=== PATIENT | female | born 1960 | race Hispanic/Latino ===

== ENCOUNTER 2017-06-06 12:24 | Inpatient (IN) | payer MEDICAID, SELFPAY ==
[2017-06-06] MEDS ORDERED: Dextrose 50% Abboject 50 ML SYRINGE ONE (13:23)
[2017-06-06 13:30] LABS: #Lymphocytes 1.2 thou/uL (1.20-3.40); #Neutrophils 10.7 thou/uL (1.40-6.50); %Basophils 0.1 % (0.0-1.0); %Eosinophils 0.3 % (0.0-10.0); %Lymphocytes 8.9 % (21.0-51.0); %Monocytes 7.4 % (0.0-10.0); %Neutrophils 83.2 % (42.0-75.0); Hemoglobin 10.7 g/dL (12.0-16.0); Mean Corpuscular HGB CONC 32.8 g/dL (32.0-36.0); Mean Corpuscular Hemoglobin 28.9 pg (27.0-31.0); Platelet Count 151 thou/uL (130-400); RBC Distribution Width 12.5 % (11.5-14.5); Red Blood Cell (RBC) Count 3.69 mill/uL (4.20-5.40); White Blood Cell (WBC) Count 12.8 thou/uL (4.8-10.8)
--- NOTE | 2017-06-06 13:52 | RAD ---
UPRIGHT PORTABLE CHEST ONE VIEW: History: 57-year-old female with history of the flu and altered mental status. Comparison: 02-16-15 FINDINGS: Heart size is within normal limits. The lungs are clear. No pneumonia, edema, or pleural effusion. IMPRESSION: No acute intrathoracic disease. POS: [facility]
[2017-06-06 14:03] LABS: ALT (SGPT) 8 U/L (8-55); AST (SGOT) 22 U/L (5-34); Albumin 3.5 g/dL (3.5-5.0); Alkaline Phosphatase 94 U/L (40-150); Anion Gap 17 mmol/L (10-20); BUN (Urea Nitrogen) 60 mg/dL (9.8-20.1); Bilirubin, Total 0.2 mg/dL (0.2-1.2); Calc. Creatinine Clearance 0 mL/min (70-130); Calcium 7.9 mg/dL (7.8-10.44); Carbon Dioxide 17 mmol/L (22-29); Chloride 108 mmol/L (98-107); Estimated GFR-MDRD 8; Globulin 3.2 g/dL (2.4-3.5); Potassium 4.7 mmol/L (3.5-5.1); Protein, Total 6.7 g/dL (6.0-8.3); Sodium 137 mmol/L (136-145)
[2017-06-06 14:10] LABS: Glucose 40 mg/dL (70-105)
[2017-06-06 14:22] LABS: CKMB 2.3 ng/mL (0-6.6)
--- NOTE | 2017-06-06 16:36 | HP ---
PRIMARY CARE PHYSICIAN: Dr. Cheyenne Blackwell. REASON FOR ADMISSION: Altered mental status and acute on chronic kidney failure. HISTORY OF PRESENT ILLNESS: A 57-year-old female, who has underlying history of chronic kidney disease, stage 3. Patient came to emergency room for altered mental status. Patient's family member reports that she was having flu- like symptoms, but in our emergency room, flu screen is negative. Patient was having very poor appetite and she was taking Glucotrol-XL 10 mg twice daily. She was feeling intermittently dizzy, diaphoretic at home for the last couple of days. Today, patient was completely diaphoretic and she passed out. She was having headache and weakness. When she came to the emergency room, she was hypoglycemic and she was given D50 and after that condition completely improved. She did not have any focal motor or sensory symptoms. She did not have any chest pain, palpitation, or shortness of breath. Patient denies taking NSAID. She takes all her medication as prescribed from primary care physician. Today, in the emergency room, routine blood tests showed a little bit leukocytosis with left shift and hypoglycemia as well as acute on chronic kidney failure. Back in 2016, her creatinine was 1.49 and today 5.62. Patient was following Dr. Jiménez in the past. I saw this patient in the emergency room. The patient is not able to talk in Arabic, but her son is present at bedside, who provided most of the history and I explained him test results as well as plan of care. When I saw this patient, patient does not have any focal neurological deficits. She is back to normal and we are deciding to admit her on medical floor for acute on chronic kidney failure. Patient does have nausea , vomiting, anorexia, and sometimes pruritus and insomnia. She is making some urine, but amount of urine is also reduced. She denies any edema, orthopnea, PND, cough, or shortness of breath, but she gets easy fatigability. ALLERGIES: No known drug allergies. CURRENT HOME MEDICATIONS: Gabapentin 100 mg p.o. daily, Glucotrol-XL 10 mg twice daily, ranitidine 300 mg p.o. at bedtime, Protonix 40 mg p.o. daily, aspirin 81 mg p.o. daily, amlodipine 10 mg p.o. daily, Lipitor 10 mg p.o. at bedtime. EMERGENCY ROOM COURSE: Patient is given D50 one ampule in the emergency room. REVIEW OF SYSTEMS: The following complete review of systems was negative, unless otherwise mentioned in the HPI or below: Constitutional: Weight loss or gain, ability to conduct usual activities. Skin: Rash, itching. Eyes: Double vision, pain. ENT/Mouth: Nose bleeding, neck stiffness, pain, tenderness. Cardiovascular: Palpitations, dyspnea on exertion, orthopnea. Respiratory: Shortness of breath, wheezing, cough, hemoptysis, fever, or night sweats. Gastrointestinal: Poor appetite, abdominal pain, heartburn, nausea, vomiting, constipation, or diarrhea. Genitourinary: Urgency, frequency, dysuria, nocturia. Musculoskeletal: Pain, swelling. Neurologic/Psychiatric: Anxiety, depression. Allergy/Immunologic: Skin rash, bleeding tendency. Please see my HPI for pertinent positives and negatives. All other review of systems reviewed and negative except as mentioned in the HPI. PAST MEDICAL HISTORY: Diabetes, type 2; diabetic nephropathy; chronic kidney disease, stage 3; hypertension; history of cervical cancer, status post surgery ; diabetic neuropathy; dyslipidemia; gastroesophageal reflux disease. PAST SURGICAL HISTORY: Cervical cancer surgery. PAST PSYCHIATRIC HISTORY: Reviewed and negative. SOCIAL HISTORY: Patient lives at home. No history of tobacco, alcohol, or illicit drug abuse. FAMILY HISTORY: No strong family history of premature coronary artery disease, stroke, or cancer. Diabetes runs among several family members. PHYSICAL EXAMINATION: VITAL SIGNS: On arrival, blood pressure 174/86, pulse 97, respiratory rate 15, temperature 98.5, saturation 94% on room air, weight 79.3 kilograms. GENERAL: Patient is hypertensive, in no obvious acute distress, alert, oriented x3. HEENT: Head: The patient does have mild bruising over the right zygomatic arch , but no other trauma. Head, normocephalic, atraumatic. Eyes: Pupils round, reactive to light. Extraocular muscle intact. No nystagmus. ENT: Oropharynx within normal limits. Moist mucous membranes. No oral lesions. No pharyngeal erythema, no exudate. NECK: Supple, no JVD, no thyromegaly, no carotid bruit, no jugular venous distention. LUNGS: Clear to auscultation without any rhonchi or rales. CARDIAC: S1 and S2, regular. No murmur, no gallop, no rub. ABDOMEN: Soft, bowel sounds present, nontender, nondistended. No organomegaly , no mass, no suprapubic tenderness. BACK EXAMINATION: Unremarkable, no CVA tenderness. EXTREMITIES: Upper extremities, passive movement of all joints are normal. Lower extremities, no edema. Good peripheral pulsation. SKIN: No skin rash. HEMATOLOGICAL SYSTEM: No lymphadenopathy. PSYCHIATRIC: Normal affect. NEUROLOGIC: Nonfocal examination. Patient is alert and oriented x3. Cranial nerves II-XII intact. Motor 5/5 in all 4 limbs. Sensation bilaterally symmetrical. Plantar bilateral flexor. No cerebellar sign. SIGNIFICANT LABORATORY DATA: Chest x-ray, based on my review, no acute cardiopulmonary process. CBC: WBC 12.8, hemoglobin 10.7, platelets 151 with a left shift. BMP: Sodium 137, potassium 4.7, chloride 108, carbon dioxide 17, anion gap 17, BUN 60, creatinine 5.62, glucose 40, calcium 7.9. Lactic acid 0.7. LFT: AST 22, ALT 8, alkaline phosphatase 94, albumin 3.5, CK 316, CK-MB 2.3, troponin I 0.020. EKG: Normal sinus rhythm within normal limits. ASSESSMENT AND PLAN: 1. Acute metabolic encephalopathy, likely due to hypoglycemia. 2. Hypoglycemia associated with diabetes, type 2, secondary to oral sulfonylurea medication. 3. Acute on chronic kidney failure. Baseline chronic kidney disease, stage 3. 4. Metabolic acidosis. 5. Anemia of renal disease. 6. Mild rhabdomyolysis. 7. Hypertension, uncontrolled. 8. Dyslipidemia. 9. Gastroesophageal reflux disease. 10. Diabetic neuropathy. PLAN: 1. Full admission to medical floor, watch for hypoglycemia, start D5 with 1/2 normal saline with 3 ampules of sodium bicarbonate at 75 mL per hour. Control blood pressure with hydralazine and clonidine p.r.n. basis. We will start amlodipine 10 mg p.o. daily. We will add Coreg 12.5 mg twice daily. We will resume gabapentin 100 mg p.o. daily, Protonix 40 mg p.o. daily, and Lipitor 10 mg p.o. at bedtime. We will hold oral sulfonylurea and watch for any recurrent hypoglycemia overnight. Nephrology will be consulted and we will send urinalysis, urine sodium, creatinine, protein for further evaluation. 2. Deep venous thrombosis prophylaxis, heparin 5000 units subcu twice daily. 3. Gastrointestinal prophylaxis, Protonix 40 mg p.o. daily. CODE STATUS: The patient is FULL CODE. Patient's son is surrogate decision maker. Disposition plan based on clinical course. We are expecting patient's stay in hospital more than 2 midnights. Plan of care discussed with the patient and family member at bedside in the emergency room. RL
[2017-06-06] MEDS ORDERED: Ondansetron HCl/PF 4 MG/2 ML Vial IVP PRN (18:05)
[2017-06-06] MEDS ORDERED: Ondansetron ODT 4 MG TAB SL PRN (18:05)
[2017-06-06] MEDS ORDERED: Sodium Chloride 0.9% 1,000 ML IV SCH (18:15)
[2017-06-06 18:38] VITALS: BMI 33.0
[2017-06-06] MEDS ORDERED: Milk Of Magnesia 30 ML UDCUP PO PRN (19:33)
[2017-06-06] MEDS ORDERED: Dextrose 50% Abboject 50 ML SYRINGE SLOW IVP PRN (19:33)
[2017-06-06] MEDS ORDERED: HYDROcodone/Acetaminophen 5/325 mg Tablet PO PRN (19:33)
[2017-06-06] MEDS ORDERED: Mag-Al 1200 mg/1200 mg/30 ML UDCUP PO PRN (19:33)
[2017-06-06] MEDS ORDERED: Eucerin (Mineral Oil/Petrolatum,White) 30 gm Jar TOP PRN (19:33)
[2017-06-06] MEDS ORDERED: hydrALAZINE 20 MG/ML VIAL SLOW IVP PRN (19:33)
[2017-06-06] MEDS ORDERED: Artificial Tears 18 DROP/0.9 ML EA EYE PRN (19:33)
[2017-06-06] MEDS ORDERED: Chloraseptic Spray 180 ml Bottle PO PRN (19:33)
[2017-06-06] MEDS ORDERED: Dextrose 5% in Water 1,000 ML IV PRN (19:33)
[2017-06-06] MEDS ORDERED: Loratadine 10 MG TAB PO PRN (19:33)
[2017-06-06] MEDS ORDERED: Senokot 8.6 MG TAB PO PRN (19:33)
[2017-06-06] MEDS ORDERED: Nitroglycerin 0.4 MG TAB (25 Tab Bottle) SL PRN (19:33)
[2017-06-06] MEDS ORDERED: Loperamide HCl 2 MG CAP PO PRN (19:33)
[2017-06-06] MEDS ORDERED: cloNIDine 0.1 MG TAB PO PRN (19:33)
[2017-06-06] MEDS ORDERED: Sodium Chloride 0.65% Nasal 44 ML BOT EA NARE PRN (19:33)
[2017-06-06] MEDS ORDERED: Zolpidem Tartrate 5 MG TAB PO PRN (19:33)
[2017-06-06] MEDS ORDERED: Ondansetron ODT 4 MG TAB PO PRN (19:33)
[2017-06-06] MEDS ORDERED: Carvedilol 6.25 MG TAB PO SCH (20:00)
[2017-06-06] MEDS: Sodium Bicarbonate 150 MEQ in Dextrose 5 %-0.45 % NaCl 1,000 ML IV SCH (21:00)
[2017-06-06] MEDS: Atorvastatin Calcium 10 MG TAB PO SCH (21:01)
[2017-06-06] MEDS: Heparin 5,000 UNITS/ML VIAL SC SCH (21:02)
[2017-06-06 22:36] LABS: Bilirubin Negative (Negative); Blood, Urine Moderate (Negative); Clarity CLOUDY (Clear); Glucose, Urine (Dipstick) 100 mg/dL (Negative); Leukocyte Moderate (Negative); Nitrite Negative (Negative); Protein, Urine (Dipstick) > or equal to 300 mg/dL (Neg-Trace); Specific Gravity, Urine 1.012 (1.002-1.036); Urobilinogen 0.2 mg/dL (0.2-1.0)
[2017-06-06 22:38] LABS: Bacteria/HPF None Seen HPF (None Seen); Hyaline Casts/LPF 4-6 HYALINE CAST LPF (0-3 Hyaline); Pathc Cast-AUWi Flag 0.94 (0-2.49); Squamous Epithelial 0-3 HPF (0-3)
[2017-06-06 22:40] LABS: Yeast-AUWi Flag 40.6 (0-25.0)
[2017-06-06 23:04] LABS: Creatinine, Urine 41.95 mg/dL (47-110)
[2017-06-06] MEDS: Acetaminophen 325 MG TAB PO PRN (23:58)
[2017-06-07] MEDS: Diabetic Tussin 200 MG/10 ML UDCUP PO PRN ×2 (05:02→17:22)
[2017-06-07 05:50] LABS: #Eosinphils 0.1 thou/uL (0.0-0.7); #Lymphocytes 1.2 thou/uL (1.20-3.40); #Monocytes 0.5 thou/uL (0.11-0.59); #Neutrophils 4.8 thou/uL (1.40-6.50); %Basophils 0.6 % (0.0-1.0); %Eosinophils 0.8 % (0.0-10.0); %Lymphocytes 18.6 % (21.0-51.0); %Monocytes 6.8 % (0.0-10.0); %Neutrophils 73.3 % (42.0-75.0); Hemoglobin 9.8 g/dL (12.0-16.0); Mean Corpuscular HGB CONC 33.4 g/dL (32.0-36.0); Mean Corpuscular Volume 86.9 fl (81.0-99.0); Mean Platelet Volume 10.6 fL (7.4-10.4); Platelet Count 151 thou/uL (130-400); RBC Distribution Width 12.4 % (11.5-14.5); Red Blood Cell (RBC) Count 3.37 mill/uL (4.20-5.40); White Blood Cell (WBC) Count 6.6 thou/uL (4.8-10.8)
[2017-06-07 06:06] LABS: ALT (SGPT) 8 U/L (8-55); AST (SGOT) 20 U/L (5-34); Albumin 3.2 g/dL (3.5-5.0); Alkaline Phosphatase 88 U/L (40-150); Anion Gap 16 mmol/L (10-20); BUN (Urea Nitrogen) 59 mg/dL (9.8-20.1); Bilirubin, Total 0.2 mg/dL (0.2-1.2); Calc. Creatinine Clearance 13 mL/min (70-130); Calcium 7.3 mg/dL (7.8-10.44); Carbon Dioxide 23 mmol/L (22-29); Chloride 109 mmol/L (98-107); Estimated GFR-MDRD 8; Globulin 2.9 g/dL (2.4-3.5); Glucose 134 mg/dL (70-105); Iron 20 ug/dL (50-170); Iron Binding Capacity, Total 170 mcg/dL (265-497); Phosphorus 5.2 mg/dL (2.3-4.7); Potassium 4.5 mmol/L (3.5-5.1); Protein, Total 6.1 g/dL (6.0-8.3); Sodium 143 mmol/L (136-145)
[2017-06-07] MEDS ORDERED: cefTRIAXone\\ROCEPHIN 1 GM in Sodium Chloride 0.9% 100 ML IVPB SCH (07:00)
[2017-06-07] MEDS: Carvedilol 6.25 MG TAB PO SCH ×2 (08:50→17:17)
[2017-06-07] MEDS: Amlodipine 10 MG TAB PO SCH (08:51)
[2017-06-07] MEDS: Gabapentin 100 MG CAP PO SCH (08:51)
[2017-06-07] MEDS: Heparin 5,000 UNITS/ML VIAL SC SCH ×2 (08:51→19:41)
[2017-06-07] MEDS: Ferrous Sulfate 325 MG TAB PO SCH (08:51)
[2017-06-07] MEDS: cefTRIAXone\\ROCEPHIN 1 GM, Syringe 0.4 ML in Sterile Water 9.6 ML SLOW IVP SCH (08:56)
[2017-06-07] MEDS: Calcium Acetate 667 MG CAP PO SCH ×3 (09:05→17:18)
--- NOTE | 2017-06-07 10:03 | PDOC.PN ---
- Subjective Encounter Start Date: 06/07/17 Encounter Start Time: 08:40 -: old records requested/rev Patient seen and examined. had fever last night, has cough, has dysuria - Objective Resuscitation Status: Resuscitation Status FULL:Full Resuscitation MAR Reviewed: Yes Vital Signs & Weight: Vital Signs (12 hours) Temp Pulse Resp BP BP Pulse Ox 06/07/17 08:51 89 152/71 H 06/07/17 08:50 152/71 H 06/07/17 08:00 100.1 F H 89 16 152/71 H 91 L 06/07/17 04:00 98.3 F 81 18 138/69 93 L 06/07/17 00:00 100.9 F H 93 18 156/69 H 92 L Weight Weight 175 lb 0.752 oz Result Diagrams: 06/07/17 04:25 06/07/17 04:25 Additional Labs: Accuchecks 06/07/17 06/06/17 06/06/17 04:51 21:01 18:04 POC Glucose 126 H 130 H 134 H 06/06/17 17:08 POC Glucose 69 L Phys Exam - Physical Examination Constitutional: NAD HEENT: PERRLA, moist MMs, sclera anicteric Neck: no JVD, supple Respiratory: no wheezing, no rales, no rhonchi Cardiovascular: RRR, no significant murmur, no rub Gastrointestinal: soft, non-tender, no distention, positive bowel sounds Musculoskeletal: no edema, pulses present Neurological: non-focal, normal sensation Psychiatric: normal affect, A&O x 3 Skin: no rash, normal turgor Dx/Plan (1) Acute metabolic encephalopathy due to hypoglycemia Code(s): G93.41 - METABOLIC ENCEPHALOPATHY; E16.2 - HYPOGLYCEMIA, UNSPECIFIED Status: Acute (2) Acute worsening of stage 3 chronic kidney disease Code(s): N18.3 - CHRONIC KIDNEY DISEASE, STAGE 3 (MODERATE) Status: Acute (3) Hypoglycemia associated with type 2 diabetes mellitus Code(s): E11.649 - TYPE 2 DIABETES MELLITUS WITH HYPOGLYCEMIA WITHOUT COMA Status: Acute (4) Metabolic acidosis Code(s): E87.2 - ACIDOSIS Status: Acute (5) Sepsis Code(s): A41.9 - SEPSIS, UNSPECIFIED ORGANISM Status: Acute (6) UTI (urinary tract infection) Status: Acute (7) Anemia of renal disease Code(s): D63.1 - ANEMIA IN CHRONIC KIDNEY DISEASE Status: Chronic (8) DM type 2 (diabetes mellitus, type 2) Status: Chronic (9) Diabetic neuropathy Code(s): E11.40 - TYPE 2 DIABETES MELLITUS WITH DIABETIC NEUROPATHY, UNSP Status: Chronic (10) Dyslipidemia Code(s): E78.5 - HYPERLIPIDEMIA, UNSPECIFIED Status: Chronic (11) GERD (gastroesophageal reflux disease) Code(s): K21.9 - GASTRO-ESOPHAGEAL REFLUX DISEASE WITHOUT ESOPHAGITIS Status: Chronic (12) HTN (hypertension) Code(s): I10 - ESSENTIAL (PRIMARY) HYPERTENSION Status: Chronic (13) Secondary hyperparathyroidism of renal origin Code(s): N25.81 - SECONDARY HYPERPARATHYROIDISM OF RENAL ORIGIN Status: Chronic - Plan cont current plan of care, plan discussed w/ family, continue antibiotics * send urine culture * start rocephin * creatinine is going up * nephrology consulted * medication reviewed as below * symptomatic treatment * follow culture. Review of Systems - Review of Systems ENT: negative: Ear Pain, Ear Discharge, Nose Pain, Nose Discharge, Nose Congestion, Mouth Pain, Mouth Swelling, Throat Pain, Throat Swelling, Other Respiratory: negative: Cough, Dry, Shortness of Breath, Hemoptysis, SOB with Excertion, Pleuritic Pain, Sputum, Wheezing Cardiovascular: negative: chest pain, palpitations, orthopnea, paroxysmal nocturnal dyspnea, edema, light headedness, other Gastrointestinal: negative: Nausea, Vomiting, Abdominal Pain, Diarrhea, Constipation, Melena, Hematochezia, Other Genitourinary: Dysuria, Frequency. negative: Incontinence, Hematuria, Retention , Other Musculoskeletal: negative: Neck Pain, Shoulder Pain, Arm Pain, Back Pain, Hand Pain, Leg Pain, Foot Pain, Other Skin: negative: Rash, Lesions, Eder, Bruising, Other - Medications/Allergies Allergies/Adverse Reactions: Allergies Allergy/AdvReac Type Severity Reaction Status Date / Time No Known Drug Allergies Allergy Verified 06/06/17 22:31 Medications: Current Medications Acetaminophen (Tylenol) 650 mg PO Q4H PRN PRN Reason: Headache/Fever or Pain Last Admin: 06/06/17 23:58 Dose: 650 mg Hydrocodone Bitart/Acetaminophen ([place] 5/325) 1 tab PO Q4H PRN PRN Reason: Moderate Pain (4-6) Al Hydroxide/Mg Hydroxide (Maalox) 30 ml PO Q6H PRN PRN Reason: Heartburn or Indigestion Amlodipine Besylate (Norvasc) 10 mg PO DAILY [facility] Last Admin: 06/07/17 08:51 Dose: 10 mg Artificial Tears (Tears Naturale) 0 drop EA EYE PRN PRN PRN Reason: Dry Eyes Aspirin (Aspirin Chewable) 81 mg PO DAILY [facility] Atorvastatin Calcium (Lipitor) 10 mg PO HS [facility] Last Admin: 06/06/17 21:01 Dose: 10 mg Calcium Acetate (Phoslo) 1,334 mg PO TID-[facility] Carvedilol (Coreg) 12.5 mg PO BID-[facility] Last Admin: 06/07/17 08:50 Dose: 12.5 mg Clonidine (Catapres) 0.1 mg PO Q4H PRN PRN Reason: Systolic BP > 180 Dextrose/Water (Dextrose 50%) 25 gm SLOW IVP PRN PRN PRN Reason: Hypoglycemia Ferrous Sulfate (Feosol) 325 mg PO QAM-[facility] Last Admin: 06/07/17 08:51 Dose: 325 mg Gabapentin (Neurontin) 100 mg PO DAILY [facility] Last Admin: 06/07/17 08:51 Dose: 100 mg Glucagon (Glucagon) 1 mg IM PRN PRN PRN Reason: Hypoglycemia Guaifenesin (Robitussin Sf) 200 mg PO Q4H PRN PRN Reason: Cough Last Admin: 06/07/17 05:02 Dose: 200 mg Heparin Sodium (Porcine) (Heparin) 5,000 units SC BID [facility] Last Admin: 06/07/17 08:51 Dose: 5,000 units Hydralazine HCl (Apresoline) 10 mg SLOW IVP Q4H PRN PRN Reason: Systolic BP > 180 Sodium Bicarbonate 150 meq/ (Dextrose/Sodium Chloride) 1,150 mls @ 75 mls/hr IV .[id number] [facility] Last Admin: 06/06/17 21:00 Dose: 1,150 mls Dextrose/Water (D5w) 1,000 mls @ 0 mls/hr IV .Q0M PRN; As Directed PRN Reason: Hypoglycemia Ceftriaxone Sodium 1 gm/ (Syringe 0.4 ml/ Sterile Water) 10 mls @ 120 mls/hr SLOW IVP Q24HR [facility] Last Admin: 06/07/17 08:56 Dose: 10 mls Loperamide HCl (Imodium) 2 mg PO PRN PRN PRN Reason: Diarrhea/Loose Stools Loratadine (Claritin) 10 mg PO DAILYPRN PRN PRN Reason: Sinus Symptoms Magnesium Hydroxide (Milk Of Magnesium) 30 ml PO DAILYPRN PRN PRN Reason: Constipation Mineral Oil/White Petrolatum (Eucerin Cream) 0 gm TOP BIDPRN PRN PRN Reason: Dry Skin Nitroglycerin (Nitrostat) 0.4 mg SL Q5MIN PRN PRN Reason: Chest Pain Ondansetron HCl (Zofran Odt) 4 mg PO Q6H PRN PRN Reason: Nausea/Vomiting Ondansetron HCl (Zofran) 4 mg IVP Q6H PRN PRN Reason: Nausea/Vomiting Pantoprazole Sodium (Protonix) 40 mg PO DAILY [facility] Last Admin: 06/07/17 08:51 Dose: 40 mg Phenol (Chloraseptic [place] 180 Ml Bot) 0 ml PO PRN PRN PRN Reason: Sore Throat Senna (Senokot) 2 tab PO HSPRN PRN PRN Reason: Constipation Sodium Chloride ([place] Nasal [place] 0.65%) 0 ml EA NARE QIDPRN PRN PRN Reason: Nasal Congestion Sodium Chloride (Flush - Normal Saline) 10 ml IVF Q12HR [facility] Last Admin: 06/06/17 21:02 Dose: 10 ml Sodium Chloride (Flush - Normal Saline) 10 ml IVF PRN PRN PRN Reason: Saline Flush Zolpidem Tartrate (Ambien) 5 mg PO HSPRN PRN PRN Reason: Insomnia
--- NOTE | 2017-06-07 11:29 | CON ---
DATE OF CONSULTATION: 06/07/2017 CONSULTING PHYSICIAN: Dr. Fontanez REASON FOR CONSULTATION: Acute kidney injury versus worsening chronic kidney disease. HISTORY OF PRESENT ILLNESS: This is a 57-year-old female with history of type 2 diabetes, diabetic n ephropathy, hypertension who came to the hospital with worsening renal function and altered mentation . She was found to be hypoglycemic. She is feeling better now. She has been following up with me i n the clinic. She has been seen from 2011, but she has not seen me in the last year. Her primary ca re has been urging her to come see me, but she is noncompliant with her visits and I am not sure if t his her chronic kidney disease, worsening with acute kidney injury. The patient is feeling better, n o nausea, vomiting, no chest pain, palpitation, no fever or chills. PAST MEDICAL HISTORY: Positive for diabetes, diabetic nephropathy, chronic kidney disease stage 4, d iabetic neuropathy, dyslipidemia, hypertension. PAST SURGICAL HISTORY: Cervical cancer removal. HOME MEDICATIONS: Diovan, Glucotrol, ranitidine, Protonix, aspirin, amlodipine, Lipitor. ALLERGIES: No known drug allergies. SOCIAL HISTORY: No smoking, alcohol or illicit drug abuse. FAMILY HISTORY: No history of kidney disease. REVIEW OF SYSTEMS: The following complete review of systems was negative, unless otherwise mentioned in the HPI or below: Constitutional: Weight loss or gain, ability to conduct usual activities. Skin: Rash, itching. Eyes: Double vision, pain. ENT/Mouth: Nose bleeding, neck stiffness, pain, tenderness. Cardiovascular: Palpitations, dyspnea on exertion, orthopnea. Respiratory: Shortness of breath, wheezing, cough, hemoptysis, fever or night sweats. Gastrointestinal: Poor appetite, abdominal pain, heartburn, nausea, vomiting, constipation, or diarrhea. Genitourinary: Urgency, frequency, dysuria, nocturia. Musculoskeletal: Pain, swelling. Neurologic/Psychiatric: Anxiety, depression. Allergy/Immunologic: Skin rash, bleeding tendency. PHYSICAL EXAMINATION: GENERAL: This is a well-built female in no apparent distress. VITAL SIGNS: Temperature 98.3, pulse 89, respiratory 18, blood pressure 138/69. HEENT: Atraumatic, normocephalic. Oral mucosa is moist. NECK: Supple, no masses. HEART: S1, S2 heard. Rate and rhythm regular. RESPIRATORY: Clear. MUSCULOSKELETAL: No tenderness. No edema. DERMATOLOGIC: No skin rashes. NEUROLOGIC: Alert and awake. PSYCHIATRIC: Normal mood and affect. LABORATORY AND X-RAY FINDINGS: Hemoglobin is 10.8. Potassium is 4.5, BUN 59, creatinine is 5.7. PT H is 1108. Urine protein almost 12 grams. ASSESSMENT AND PLAN: 1. Acute kidney injury on chronic kidney disease stage 4 versus chronic kidney disease, worsening wi th chronic kidney disease stage 5. We will monitor. No acute indication for dialysis. 2. Significant proteinuria. 3. Diabetic nephropathy. 4. Secondary hyperparathyroidism. Check vitamin D level. 5. Anemia, most likely from chronic kidney disease. 6. Edema. 7. Hypertension. 8. Hypoalbuminemia. 9. Hypocalcemia secondary to renal disease. 10. Anemia with iron deficiency. Recommend iron supplements. Start iron supplements and check vitamin D level. No acute indication for dialysis. We will follow. Thank you for the consult.
[2017-06-07] MEDS: Sodium Bicarbonate 150 MEQ in Dextrose 5 %-0.45 % NaCl 1,000 ML IV SCH ×2 (13:41→14:53)
[2017-06-07] MEDS ORDERED: Dextrose 5% in Water 1,000 ML IV PRN (14:24)
[2017-06-07] MEDS ORDERED: Insulin Regular 300 UNITS/3 ML VIAL SC PRN ×4 (14:24)
[2017-06-07] MEDS ORDERED: HumaLOG 300 UNITS/3 ML VIAL SC PRN ×3 (14:24)
[2017-06-07] MEDS ORDERED: Dextrose 50% Abboject 50 ML SYRINGE IVP PRN (14:24)
[2017-06-07] MEDS ORDERED: Insulin Regular 300 UNITS/3 ML VIAL SC SCH (17:00)
[2017-06-07] MEDS ORDERED: HumaLOG 300 UNITS/3 ML VIAL SC SCH (17:00)
[2017-06-07] MEDS: Acetaminophen 325 MG TAB PO PRN (18:50)
[2017-06-07] MEDS: Atorvastatin Calcium 10 MG TAB PO SCH (19:41)
[2017-06-08] MEDS: Acetaminophen 325 MG TAB PO PRN (04:30)
[2017-06-08] MEDS: Sodium Bicarbonate 150 MEQ in Dextrose 5 %-0.45 % NaCl 1,000 ML IV SCH (04:54)
[2017-06-08] MEDS: HumaLOG 300 UNITS/3 ML VIAL SC PRN ×2 (06:02→13:09)
[2017-06-08 07:17] LABS: #Monocytes 0.5 thou/uL (0.11-0.59); #Neutrophils 2.6 thou/uL (1.40-6.50); %Basophils 0.9 % (0.0-1.0); %Eosinophils 0.7 % (0.0-10.0); %Lymphocytes 24.1 % (21.0-51.0); %Neutrophils 62.3 % (42.0-75.0); Hemoglobin 9.4 g/dL (12.0-16.0); Mean Corpuscular HGB CONC 32.8 g/dL (32.0-36.0); Mean Corpuscular Hemoglobin 28.8 pg (27.0-31.0); Mean Corpuscular Volume 87.7 fl (81.0-99.0); Mean Platelet Volume 10.2 fL (7.4-10.4); Platelet Count 127 thou/uL (130-400); RBC Distribution Width 12.2 % (11.5-14.5); Red Blood Cell (RBC) Count 3.27 mill/uL (4.20-5.40); White Blood Cell (WBC) Count 4.1 thou/uL (4.8-10.8)
[2017-06-08 07:30] LABS: ALT (SGPT) Less than 7 U/L (8-55); AST (SGOT) 17 U/L (5-34); Alkaline Phosphatase 81 U/L (40-150); Anion Gap 13 mmol/L (10-20); BUN (Urea Nitrogen) 52 mg/dL (9.8-20.1); Bilirubin, Total 0.3 mg/dL (0.2-1.2); Calc. Creatinine Clearance 14 mL/min (70-130); Calcium 6.7 mg/dL (7.8-10.44); Carbon Dioxide 29 mmol/L (22-29); Chloride 102 mmol/L (98-107); Estimated GFR-MDRD 8; Globulin 2.8 g/dL (2.4-3.5); Glucose 223 mg/dL (70-105); Protein, Total 5.8 g/dL (6.0-8.3); Sodium 140 mmol/L (136-145)
--- NOTE | 2017-06-08 08:40 | CT ---
CT ABDOMEN AND PELVIS WITHOUT CONTRAST: HISTORY: UTI, sepsis. FINDINGS: Comparison is made with the exam of 06/24/15. Absence of oral and IV contrast reduces the sensitivity of the exam, particularly for the evaluation of solid organs involved. There are mild infiltrates in the lung bases and a tiny left pleural effusion. A small hiatal hernia is present. No calcified gallstones are seen. No free air or free fluid is seen in the abdomen or pelvis. No calculi are noted in the kidneys, ureters, or the urinary bladder. No hydroureteral nephrosis is seen on either side. There is a small fat-containing ventral hernia. There are postop changes in the pelvis. There are v ascular calcifications without evidence of aneurysmal dilatation of the abdominal aorta. An old frac ture of the right transverse process of L1 is again seen. There are mild degenerative changes in the spine. There is colonic diverticulosis without diverticulitis. IMPRESSION: 1. Patchy bibasilar infiltrates with tiny left pleural effusion. 2. Small hiatal hernia. 3. Small fat-containing ventral hernia. 4. Colonic diverticulosis. 5. No CT evidence of urinary tract calculi or obstruction. POS: [facility]
[2017-06-08] MEDS ORDERED: Sodium Chloride 0.9% 1,000 ML IV SCH (08:45)
[2017-06-08] MEDS ORDERED: CEFAZOLIN/Water 2 GM/20 ML SYRINGE SLOW IVP SCH (09:00)
[2017-06-08] MEDS: Oseltamivir 6 MG/ML ORAL SUSP PO SCH (09:19)
[2017-06-08] MEDS: Calcitriol 0.25 MCG CAP PO SCH (09:20)
[2017-06-08] MEDS: Gabapentin 100 MG CAP PO SCH (09:21)
[2017-06-08] MEDS: Ferrous Sulfate 325 MG TAB PO SCH (09:21)
[2017-06-08] MEDS: Calcium Acetate 667 MG CAP PO SCH ×3 (09:21→18:25)
[2017-06-08] MEDS: Carvedilol 6.25 MG TAB PO SCH ×2 (09:30→18:25)
[2017-06-08] MEDS: Amlodipine 10 MG TAB PO SCH (09:30)
[2017-06-08] MEDS: Heparin 5,000 UNITS/ML VIAL SC SCH ×2 (09:31→23:24)
--- NOTE | 2017-06-08 09:46 | PDOC.PN ---
- Subjective Encounter Start Date: 06/08/17 Encounter Start Time: 07:30 pt has cough, has burning abdominal discomfort, she has high grade fever - Objective Resuscitation Status: Resuscitation Status FULL:Full Resuscitation MAR Reviewed: Yes Vital Signs & Weight: Vital Signs (12 hours) Temp Pulse Resp BP BP Pulse Ox 06/08/17 09:30 80 118/63 06/08/17 08:00 98.0 F 80 16 118/63 90 L 06/08/17 04:00 102.7 F H 06/08/17 00:30 93 L 06/08/17 00:00 99.6 F 86 20 147/69 H 88 L Weight Weight 175 lb 0.752 oz I&O: 06/07/17 06/08/17 06/09/17 06:59 06:59 06:59 Intake Total 1138 Balance 1138 Result Diagrams: 06/08/17 04:16 06/08/17 04:16 Additional Labs: Accuchecks 06/08/17 06/07/17 06/07/17 06:03 20:26 16:31 POC Glucose 235 H 203 H 176 H 06/07/17 11:35 POC Glucose 200 H Radiology Reviewed by me: Yes (CT abdomen) Phys Exam - Physical Examination Constitutional: NAD HEENT: PERRLA, moist MMs, sclera anicteric Neck: no JVD, supple Respiratory: no wheezing, no rhonchi basilar rales Cardiovascular: RRR, no significant murmur, no rub Gastrointestinal: soft, non-tender, no distention, positive bowel sounds Musculoskeletal: no edema, pulses present Neurological: non-focal, normal sensation, moves all 4 limbs Psychiatric: normal affect, A&O x 3 Skin: no rash, normal turgor Dx/Plan (1) Acute metabolic encephalopathy due to hypoglycemia Code(s): G93.41 - METABOLIC ENCEPHALOPATHY; E16.2 - HYPOGLYCEMIA, UNSPECIFIED Status: Acute (2) Acute worsening of stage 3 chronic kidney disease Code(s): N18.3 - CHRONIC KIDNEY DISEASE, STAGE 3 (MODERATE) Status: Acute (3) Hypoglycemia associated with type 2 diabetes mellitus Code(s): E11.649 - TYPE 2 DIABETES MELLITUS WITH HYPOGLYCEMIA WITHOUT COMA Status: Acute (4) Metabolic acidosis Code(s): E87.2 - ACIDOSIS Status: Acute (5) Sepsis Code(s): A41.9 - SEPSIS, UNSPECIFIED ORGANISM Status: Acute (6) UTI (urinary tract infection) Status: Acute (7) Anemia of renal disease Code(s): D63.1 - ANEMIA IN CHRONIC KIDNEY DISEASE Status: Chronic (8) DM type 2 (diabetes mellitus, type 2) Status: Chronic (9) Diabetic neuropathy Code(s): E11.40 - TYPE 2 DIABETES MELLITUS WITH DIABETIC NEUROPATHY, UNSP Status: Chronic (10) Dyslipidemia Code(s): E78.5 - HYPERLIPIDEMIA, UNSPECIFIED Status: Chronic (11) GERD (gastroesophageal reflux disease) Code(s): K21.9 - GASTRO-ESOPHAGEAL REFLUX DISEASE WITHOUT ESOPHAGITIS Status: Chronic (12) HTN (hypertension) Code(s): I10 - ESSENTIAL (PRIMARY) HYPERTENSION Status: Chronic (13) Secondary hyperparathyroidism of renal origin Code(s): N25.81 - SECONDARY HYPERPARATHYROIDISM OF RENAL ORIGIN Status: Chronic (14) Community acquired pneumonia Code(s): J18.9 - PNEUMONIA, UNSPECIFIED ORGANISM Status: Acute (15) Influenza B Code(s): J10.1 - FLU DUE TO OTH IDENT INFLUENZA VIRUS W OTH RESP MANIFEST Status: Acute (16) Vitamin D deficiency Code(s): E55.9 - VITAMIN D DEFICIENCY, UNSPECIFIED Status: Acute - Plan cont current plan of care, plan discussed w/ family, continue antibiotics, respiratory therapy * DC Bicarbonate drip * CT stone protocol ordered and reviewed * start Levaquin every other day * start Tamiflu * monitor renal function * medication reviewed as below * symptomatic treatment * discussed with family. Review of Systems - Review of Systems Constitutional: fever, weakness. negative: chills, sweats, malaise, other ENT: negative: Ear Pain, Ear Discharge, Nose Pain, Nose Discharge, Nose Congestion, Mouth Pain, Mouth Swelling, Throat Pain, Throat Swelling, Other Respiratory: Cough. negative: Dry, Shortness of Breath, Hemoptysis, SOB with Excertion, Pleuritic Pain, Sputum, Wheezing Cardiovascular: negative: chest pain, palpitations, orthopnea, paroxysmal nocturnal dyspnea, edema, light headedness, other Gastrointestinal: Nausea. negative: Vomiting, Abdominal Pain, Diarrhea, Constipation, Melena, Hematochezia, Other Genitourinary: Dysuria. negative: Frequency, Incontinence, Hematuria, Retention , Other Musculoskeletal: negative: Neck Pain, Shoulder Pain, Arm Pain, Back Pain, Hand Pain, Leg Pain, Foot Pain, Other Skin: negative: Rash, Lesions, Eder, Bruising, Other - Medications/Allergies Allergies/Adverse Reactions: Allergies Allergy/AdvReac Type Severity Reaction Status Date / Time No Known Drug Allergies Allergy Verified 06/06/17 22:31 Medications: Current Medications Acetaminophen (Tylenol) 650 mg PO Q4H PRN PRN Reason: Headache/Fever or Pain Last Admin: 06/08/17 04:30 Dose: 650 mg Hydrocodone Bitart/Acetaminophen ([place] 5/325) 1 tab PO Q4H PRN PRN Reason: Moderate Pain (4-6) Al Hydroxide/Mg Hydroxide (Maalox) 30 ml PO Q6H PRN PRN Reason: Heartburn or Indigestion Amlodipine Besylate (Norvasc) 10 mg PO DAILY [facility] Last Admin: 06/08/17 09:30 Dose: Not Given Artificial Tears (Tears Naturale) 0 drop EA EYE PRN PRN PRN Reason: Dry Eyes Aspirin (Aspirin Chewable) 81 mg PO DAILY [facility] Last Admin: 06/08/17 09:21 Dose: 81 mg Atorvastatin Calcium (Lipitor) 10 mg PO HS [facility] Last Admin: 06/07/17 19:41 Dose: 10 mg Calcitriol (Rocaltrol) 0.25 mcg PO DAILY [facility] Last Admin: 06/08/17 09:20 Dose: 0.25 mcg Calcium Acetate (Phoslo) 1,334 mg [facility] Last Admin: 06/08/17 09:21 Dose: 1,334 mg Carvedilol (Coreg) 12.5 mg PO BID[facility] Last Admin: 06/08/17 09:30 Dose: Not Given Cefazolin Sodium (Ancef) 2 gm SLOW IVP [facility] Cholecalciferol (Vitamin D3) 1,000 units PO DAILY [facility] Last Admin: 06/08/17 09:21 Dose: 1,000 units Clonidine (Catapres) 0.1 mg PO Q4H PRN PRN Reason: Systolic BP > 180 Dextrose/Water (Dextrose 50%) 25 gm IVP PRN PRN PRN Reason: HYPOGLYCEMIA PROTOCOL Famotidine (Pepcid) 20 mg PO DAILY [facility] Ferrous Sulfate (Feosol) 325 mg PO QAM[facility] Last Admin: 06/08/17 09:21 Dose: 325 mg Gabapentin (Neurontin) 100 mg PO DAILY [facility] Last Admin: 06/08/17 09:21 Dose: 100 mg Glucagon (Glucagon) 1 mg IM PRN PRN PRN Reason: HYPOGLYCEMIA PROTOCOL Guaifenesin (Robitussin Sf) 200 mg PO Q4H PRN PRN Reason: Cough Last Admin: 06/07/17 17:22 Dose: 200 mg Heparin Sodium (Porcine) (Heparin) 5,000 units SC BID [facility] Last Admin: 06/08/17 09:31 Dose: Not Given Hydralazine HCl (Apresoline) 10 mg SLOW IVP Q4H PRN PRN Reason: Systolic BP > 180 Ceftriaxone Sodium 1 gm/ (Syringe 0.4 ml/ Sterile Water) 10 mls @ 120 mls/hr SLOW IVP Q24HR [facility] Last Admin: 06/07/17 08:56 Dose: 10 mls Dextrose/Water (D5w) 1,000 mls @ 0 mls/hr IV INF PRN; As Directed PRN Reason: HYPOGLYCEMIA PROTOCOL Sodium Chloride (Normal Saline 0.9%) 1,000 mls @ 50 mls/hr IV .Q20H [facility] Last Admin: 06/08/17 09:19 Dose: 1,000 mls Levofloxacin 500 mg/ Device 100 mls @ 100 mls/hr IVPB Q2DAYS [facility] Insulin Human Lispro (Humalog) 0 units SC .MODERATE SLIDING SC PRN; Protocol PRN Reason: MODERATE SLIDING SCALE Last Admin: 06/08/17 06:02 Dose: 4 unit Loperamide HCl (Imodium) 2 mg PO PRN PRN PRN Reason: Diarrhea/Loose Stools Last Admin: 06/07/17 10:36 Dose: 2 mg Loratadine (Claritin) 10 mg PO DAILYPRN PRN PRN Reason: Sinus Symptoms Magnesium Hydroxide (Milk Of Magnesium) 30 ml PO DAILYPRN PRN PRN Reason: Constipation Last Admin: 06/08/17 09:22 Dose: 30 ml Mineral Oil/White Petrolatum (Eucerin Cream) 0 gm TOP BIDPRN PRN PRN Reason: Dry Skin Nitroglycerin (Nitrostat) 0.4 mg SL Q5MIN PRN PRN Reason: Chest Pain Ondansetron HCl (Zofran Odt) 4 mg PO Q6H PRN PRN Reason: Nausea/Vomiting Last Admin: 06/07/17 19:41 Dose: 4 mg Ondansetron HCl (Zofran) 4 mg IVP Q6H PRN PRN Reason: Nausea/Vomiting Oseltamivir Phosphate (Tamiflu) 30 mg PO DAILY [facility] Last Admin: 06/08/17 09:19 Dose: 30 mg Pantoprazole Sodium (Protonix) 40 mg PO DAILY [facility] Last Admin: 06/08/17 09:20 Dose: 40 mg Phenol (Chloraseptic [place] 180 Ml Bot) 0 ml PO PRN PRN PRN Reason: Sore Throat Senna (Senokot) 2 tab PO HSPRN PRN PRN Reason: Constipation Sodium Chloride ([place] Nasal [place] 0.65%) 0 ml EA NARE QIDPRN PRN PRN Reason: Nasal Congestion Sodium Chloride (Flush - Normal Saline) 10 ml IVF Q12HR [facility] Last Admin: 06/08/17 09:31 Dose: 10 ml Sodium Chloride (Flush - Normal Saline) 10 ml IVF PRN PRN PRN Reason: Saline Flush Zolpidem Tartrate (Ambien) 5 mg PO HSPRN PRN PRN Reason: Insomnia
[2017-06-08] MEDS: cefTRIAXone\\ROCEPHIN 1 GM, Syringe 0.4 ML in Sterile Water 9.6 ML SLOW IVP SCH (09:57)
--- NOTE | 2017-06-08 13:25 | ULT ---
BILATERAL UPPER EXTREMITY VEIN MAPPING: DATE: 06/08/17. COMPARISON: None. HISTORY: End-stage renal disease, vascular mapping requested to assess for dialysis access. TECHNIQUE: Vascular structures of bilateral upper extremities assessed with connell scale imaging as well as color flow and spectral analysis. FINDINGS: Bilateral internal jugular veins, subclavian veins, and axillary veins are patent. Bilateral cephalic and basilic veins are patent. VESSEL DIAMETER(mm) Right brachial artery 4.3 Right radial artery 2.4 Right ulnar artery 2.3 Left brachial artery 2.9 Left radial artery 2.4 Left ulnar artery 1.7 RIGHT CEPHALIC VEIN Above elbow proximal 4.3 Above elbow mid 3.7 Above elbow distal 3.7 At elbow 5.8 Below elbow proximal 3.7 Below elbow mid 2.1 Below elbow distal 1.8 RIGHT BASILIC VEIN Above elbow proximal 3.0 Above elbow mid 4.2 Above elbow distal 3.7 At elbow 2.7 Below elbow proximal 1.5 Below elbow mid 1.0 Below elbow distal 0.5 LEFT BASILIC VEIN Above elbow proximal 4.6 Above elbow mid 2.9 Above elbow distal 4.0 At elbow 3.4 Below elbow proximal 2.6 Below elbow mid 1.8 Below elbow distal 1.1 LEFT CEPHALIC VEIN Above elbow proximal 4.2 Above elbow mid 3.8 Above elbow distal 3.7 At elbow 6.0 Below elbow proximal 3.6 Below elbow mid 2.4 Below elbow distal 0.9 IMPRESSION: Vascular mapping of the upper extremities as detailed above. POS: [facility]
[2017-06-08 14:36] LABS: HBSAB Concentration 0.28 mIU/mL; HBSAg Index 0.14 S/CO (0-0.99); Hep B Core Total Ab Non-Reactive (NonReactive); Hep B Core Total Index 0.11 S/CO (0-0.79); Hep B Surf AB Non-Reactive (NonReactive); Hep B Surf Ag Non-Reactive S/CO (NonReactive); Hep C IgG Ab Non-Reactive (NonReactive); Hep C Index 0.09 S/CO (0-0.79)
--- NOTE | 2017-06-08 17:40 | HP ---
HISTORY OF PRESENT ILLNESS: Shelby Ashraf is a 57-year-old female who lives at home, is , gra rakan 5, para 5, has a history of cervical cancer 25 years ago, hysterectomy in [place], radiation the rapy locally, presents this hospitalization 06/06/2017, admitted to the Hospitalist, seen by Dr. Ej pinto for altered mental status and acute on chronic renal failure. The patient had flu-like symptoms, was hypoglycemic, given D50. She has a history of diabetes and hypertension. Plan is to place a cuffed tunnel dialysis catheter and a central line. We will plan this today. We will plan placement of a more permanent dialysis access next week. ALLERGIES: None. MEDICATIONS: Gabapentin, Glucotrol, ranitidine, Protonix, aspirin, amlodipine, Lipitor. TOBACCO: None. ALCOHOL: None. PAST MEDICAL HISTORY: Diabetes, hypertension, history of cervical cancer, recent flu. PAST SURGICAL HISTORY: Hysterectomy, radiation therapy. Marking [facility] revealed excellent veins in both arms. CT scan of abdomen and pelvis this admission reveals s mall hiatal hernia, small fat containing ventral hernia, diverticulosis. No urinary tract obstructio n. PHYSICAL EXAMINATION: VITAL SIGNS: 5 feet 1 inch, 175 pounds, 33 BMI, 97.9, 79, 18, 151/74. HEAD, EYES, EARS, NOSE AND THROAT: Unremarkable. LUNGS: Clear to auscultation. CARDIAC: Regular rate and rhythm without murmur or gallop. ABDOMEN: Soft, nontender. EXTREMITIES: Unremarkable. Palpable pulses. IV left hand. LABORATORY DATA: White count 4, hemoglobin 9.4, GFR 8, creatinine 5.66, potassium 4. ASSESSMENT AND PLAN: 1. Renal failure. We will plan placement of hemodialysis catheter and a central line. Risk and srinivasan efits of infection, bleeding, reoperation, malfunction of catheter explained. She consents. 2. End-stage renal disease. We will plan placement of a primary fistula, probably the left arm next week after dialysis this week. 3. Diabetes mellitus. 4. Hypertension. 5. History of cervical cancer status post hysterectomy. No evidence of obstructive uropathy per nelly ging. 6. Anemia, probably will need colonoscopy in the future.
[2017-06-08] MEDS ORDERED: Sodium Chloride 0.9% 0 ML ONE (20:06)
[2017-06-08] MEDS ORDERED: Lidocaine 1% w/Epinephrine 1:100K 30 ML VIAL ONE (20:06)
[2017-06-08] MEDS ORDERED: Heparin 10,000 UNITS/1 ML VIAL ONE (20:06)
[2017-06-08] MEDS ORDERED: Bupivacaine 0.5% 10 ML VIAL ONE (20:06)
--- NOTE | 2017-06-08 20:49 | PRG ---
DATE OF SERVICE: 06/08/2017 SUBJECTIVE: Patient was seen and examined at bedside and overnight events noted. Patient denies any shortness of breath or chest pain or palpitation. No history of nausea or vomiting or diarrhea or f ever or chills or cramps. PHYSICAL EXAMINATION: GENERAL: This is a well-built white female in no apparent distress. VITAL SIGNS: Temperature 97.9, pulse 81, respiratory rate of 18, blood pressure 118/63. HEENT: Atraumatic, normocephalic. Oral mucosa is moist. NECK: Supple. CARDIOVASCULAR: S1, S2 heard. Rate and rhythm regular. RESPIRATORY: Clear to auscultation. GASTROINTESTINAL: Abdomen is soft. MUSCULOSKELETAL: No tenderness. No edema. DERMATOLOGIC: No skin rash. NEUROLOGIC: Alert and awake and oriented x3. No focal neurologic deficits. Moving all the extremit ies. PSYCHIATRIC: Mood and affect normal. LABORATORY DATA: Potassium is 4.0, BUN is 52, creatinine is 5.6. ASSESSMENT AND PLAN: 1. End-stage renal disease. Patient's creatinine is not improving with hydration. No hydronephrosi s. Plan is to start on dialysis. Surgery will be consulted and we will start dialysis. 2. Diabetic nephropathy. 3. Secondary hyperparathyroidism. 4. Anemia of chronic disease. 5. Hypertension. Plan is to start on dialysis. We will have case management consult for outpatient placement.
[2017-06-08] MEDS ORDERED: Fentanyl 100 MCG/2 ML VIAL ONE (20:53)
[2017-06-08] MEDS ORDERED: Midazolam HCl 5 mg/5 ml Vial ONE (20:54)
[2017-06-08] MEDS ORDERED: Propofol 500 MG/50 ML VIAL ONE (20:54)
[2017-06-08] MEDS ORDERED: Tuberculin PPD 0.1 ML VIAL I-DERMAL SCH (21:00)
[2017-06-08] MEDS ORDERED: Midazolam HCl 2 mg/2 ml Vial ONE (21:13)
[2017-06-08] MEDS ORDERED: Acetaminophen 500 MG TAB PO PRN (21:54)
[2017-06-08] MEDS ORDERED: traMADol HCl 50 MG TAB PO PRN ×2 (21:54)
[2017-06-08] MEDS ORDERED: Promethazine HCl 25 MG/ML VIAL IM PRN (21:57)
[2017-06-08] MEDS ORDERED: Ondansetron HCl/PF 4 MG/2 ML Vial IVP PRN (21:57)
[2017-06-08] MEDS ORDERED: Promethazine HCl 25 MG/ML VIAL SLOW IVP PRN (21:57)
--- NOTE | 2017-06-08 22:10 | RAD ---
PORTABLE CHEST: 06/08/17 HISTORY: Shortness of breath. Catheter placement. COMPARISON: 06/06/17. FINDINGS/IMPRESSION: The central line from what appears to be the left jugular has tip overlying the right atrium. A secon d large caliber dual lumen central line from the right has tip overlying the SVC. There is cardiomega ly with mild vascular congestion. No other interval change. POS: [facility]
[2017-06-08] MEDS: Atorvastatin Calcium 10 MG TAB PO SCH (23:23)
--- NOTE | 2017-06-09 00:22 | OP ---
DATE OF OPERATION: 06/08/2017 PREOPERATIVE DIAGNOSES: End-stage renal disease in need of dialysis access, poor IV access. We will need a fistula in the next few days. POSTOPERATIVE DIAGNOSES: End-stage renal disease in need of dialysis access, poor IV access. We efren l need a fistula in the next few days. PROCEDURE: Right IJ cuffed tunnel hemodialysis catheter, angiodynamics precurved. Left internal jug ular vein triple lumen catheter, ultrasound fluoroscopy used. SURGEON: Dr. Antione Leach. ANESTHESIA: Intravenous sedation and local 0.5% Marcaine, 30 mL, mixed with 1% Xylocaine with epinep hrine, 20 mL. ESTIMATED BLOOD LOSS: None. PROCEDURE IN DETAIL: Patient taken to the operating room where under intravenous sedation, neck and chest were prepared with chloraprep, draped in routine fashion. Local anesthetic infiltrated into sk in and subcutaneous tissue about the operative site. Trocar catheter cannulated the right and left i nternal jugular vein. Using ultrasound guidance and J-wire threaded, trocar catheter removed. Skin incised and enlarged sharply. Stab incision made right chest. Using the tunneling device, precurved angiodynamics cuffed tunneled hemodialysis, catheter tunneled between the two incisions on the right , placing the fabric cuff beneath the skin exit site and catheter secured with 2 interrupted sutures of 3-0 nylon. Dermabond Biopatch sterile dressing applied. Smaller and medium sized dilators placed over the J-wire into the internal jugular vein right and removed. Dilator and pull-away sheath plac ed in the superior vena cava and dilator and J-wire removed. Catheter placed with pull-away sheath a nd pull-away sheath removed. Platysma approximated with 4-0 Monocryl, skin with subdermal 4-0 Monocr yl and DermaGlue and sterile dressings applied. Each port aspirated blood and flushed with saline so lution and heparinized saline solution 1000 units heparin per mL indicated volume of the port. Seldinger technique used to place left IJ, triple lumen catheter placed and a Biopatch secured with 3 -0 nylon. Each port aspirated blood and flushed with heparinized saline. Sterile dressings applied. Patient tolerated the procedure well. Final fluoroscopic images revealed good line placement.
[2017-06-09] MEDS: Acetaminophen 325 MG TAB PO PRN (01:45)
[2017-06-09] MEDS: Calcium Acetate 667 MG CAP PO SCH ×3 (08:18→17:12)
[2017-06-09] MEDS: cefTRIAXone\\ROCEPHIN 1 GM, Syringe 0.4 ML in Sterile Water 9.6 ML SLOW IVP SCH (10:15)
[2017-06-09] MEDS: Gabapentin 100 MG CAP PO SCH (10:16)
[2017-06-09] MEDS: Famotidine 20 MG TAB PO SCH (10:16)
[2017-06-09] MEDS: Ferrous Sulfate 325 MG TAB PO SCH (10:16)
[2017-06-09] MEDS: Calcitriol 0.25 MCG CAP PO SCH (10:17)
[2017-06-09] MEDS: Carvedilol 6.25 MG TAB PO SCH ×2 (10:17→17:12)
[2017-06-09] MEDS: Amlodipine 10 MG TAB PO SCH (10:17)
[2017-06-09] MEDS: Heparin 5,000 UNITS/ML VIAL SC SCH ×2 (10:18→21:21)
[2017-06-09] MEDS: Oseltamivir 6 MG/ML ORAL SUSP PO SCH (10:25)
--- NOTE | 2017-06-09 12:03 | PRG ---
Nephrology Progress Note template for Dr Wellington Patient Name: Shelby Ashraf. Date of service: 06/09/2017 Subjective: Patient was seen and examined at bedside and overnight events noted. Patient denies any shortness of breath or chest pain or palpitation. No history of nausea or vomiting or diarrhea or fever or chills or cramps. Objective: General: This is a well-built female in no acute distress Vital signs : Temperature 96, Heart Rate 70, Respiratory rate 18, Blood pressure 167/76. HEENT: Atraumatic, normocephalic, Oral mucosa is moist Neck: Supple Cardiovascular: S1S2 heard, Rate and rhythm regular Respiratory: Clear to auscultation Gastrointestinal: Abdomen is soft Musculoskeletal : No tenderness, No edema Dermatologic : No skin rash Neurologic: Alert and awake and oriented X3, No focal neurologic deficits. Moving all the extremities . Psychiatric: Mood and affect normal Laboratory data: Not done today. Assessment and Plan: 1. End-stage renal disease. Plan is to continue on dialysis as tolerated. 2. Diabetic nephropathy. 3. Anemia of chronic disease. 4. Hypertension. 5. Secondary hyperparathyroidism. 6. We will start on Zemplar and continue Epogen with dialysis. We will follow. Follow with case cyrus garrido for outpatient placement.
[2017-06-09] MEDS ORDERED: Heparin 10,000 UNITS/ 10 ML VIAL ONE (13:52)
--- NOTE | 2017-06-09 16:43 | PRG ---
DATE OF SERVICE: 06/09/2017 Shelby Ashraf is doing well today. She is undergoing hemodialysis. She is right-handed. She will n eed left arm primary fistula. Ultrasound vein mapping performed, suggest both arms are suitable for primary fistula and certainly the left arm is adequate with a good cephalic vein. She is likely to n eed a transposition fistula due to her morbid obesity, 5 foot, 133 BMI, but we will see how this matu res after it is formed. We will plan this procedure probably early in the upcoming week.
[2017-06-09] MEDS: Atorvastatin Calcium 10 MG TAB PO SCH (21:21)
[2017-06-10] MEDS: Calcium Acetate 667 MG CAP PO SCH ×3 (09:21→17:47)
[2017-06-10] MEDS: Ferrous Sulfate 325 MG TAB PO SCH (09:22)
[2017-06-10] MEDS: Carvedilol 6.25 MG TAB PO SCH ×2 (09:23→17:47)
[2017-06-10] MEDS: Gabapentin 100 MG CAP PO SCH (09:24)
[2017-06-10] MEDS: Famotidine 20 MG TAB PO SCH (09:25)
[2017-06-10] MEDS: Amlodipine 10 MG TAB PO SCH (09:25)
[2017-06-10] MEDS: Heparin 5,000 UNITS/ML VIAL SC SCH ×2 (09:26→21:45)
[2017-06-10] MEDS: Calcitriol 0.25 MCG CAP PO SCH (09:26)
[2017-06-10] MEDS: Oseltamivir 6 MG/ML ORAL SUSP PO SCH (09:34)
[2017-06-10] MEDS: cefTRIAXone\\ROCEPHIN 1 GM, Syringe 0.4 ML in Sterile Water 9.6 ML SLOW IVP SCH (09:38)
--- NOTE | 2017-06-10 09:59 | PDOC.PN ---
- Subjective Encounter Start Date: 06/10/17 Encounter Start Time: 07:10 Patient seen and examined. No new complaints. No overnight events - Objective Resuscitation Status: Resuscitation Status FULL:Full Resuscitation MAR Reviewed: Yes Vital Signs & Weight: Vital Signs (12 hours) Temp Pulse Resp BP BP BP Pulse Ox 06/10/17 09:25 65 176/78 H 06/10/17 09:23 176/78 H 06/10/17 08:00 98.2 F 65 16 176/78 H 95 06/10/17 06:00 64 162/79 H 06/10/17 04:00 99.2 F 75 18 185/71 H 94 L 06/10/17 00:00 98.5 F 70 20 146/77 H 93 L Weight Weight 175 lb 0.752 oz I&O: 06/09/17 06/10/17 06/11/17 06:59 06:59 06:59 Intake Total 1120 490 Output Total 1000 Balance 1120 -510 Result Diagrams: 06/08/17 04:16 06/08/17 04:16 Additional Labs: Accuchecks 06/10/17 06/09/17 06/09/17 04:35 20:21 16:29 POC Glucose 123 H 160 H 157 H 06/09/17 11:11 POC Glucose 124 H Phys Exam - Physical Examination Constitutional: NAD HEENT: PERRLA, moist MMs, sclera anicteric Neck: no JVD, supple Respiratory: no wheezing, no rales, no rhonchi Cardiovascular: RRR, no significant murmur, no rub Gastrointestinal: soft, non-tender, no distention, positive bowel sounds Musculoskeletal: no edema, pulses present Neurological: non-focal, normal sensation Lymphatic: no nodes Psychiatric: normal affect Skin: no rash, normal turgor Dx/Plan (1) Acute metabolic encephalopathy due to hypoglycemia Code(s): G93.41 - METABOLIC ENCEPHALOPATHY; E16.2 - HYPOGLYCEMIA, UNSPECIFIED Status: Acute (2) Acute worsening of stage 3 chronic kidney disease Code(s): N18.3 - CHRONIC KIDNEY DISEASE, STAGE 3 (MODERATE) Status: Acute (3) Hypoglycemia associated with type 2 diabetes mellitus Code(s): E11.649 - TYPE 2 DIABETES MELLITUS WITH HYPOGLYCEMIA WITHOUT COMA Status: Acute (4) Metabolic acidosis Code(s): E87.2 - ACIDOSIS Status: Acute (5) Sepsis Code(s): A41.9 - SEPSIS, UNSPECIFIED ORGANISM Status: Acute (6) UTI (urinary tract infection) Status: Acute (7) Anemia of renal disease Code(s): D63.1 - ANEMIA IN CHRONIC KIDNEY DISEASE Status: Chronic (8) DM type 2 (diabetes mellitus, type 2) Status: Chronic (9) Diabetic neuropathy Code(s): E11.40 - TYPE 2 DIABETES MELLITUS WITH DIABETIC NEUROPATHY, UNSP Status: Chronic (10) Dyslipidemia Code(s): E78.5 - HYPERLIPIDEMIA, UNSPECIFIED Status: Chronic (11) GERD (gastroesophageal reflux disease) Code(s): K21.9 - GASTRO-ESOPHAGEAL REFLUX DISEASE WITHOUT ESOPHAGITIS Status: Chronic (12) HTN (hypertension) Code(s): I10 - ESSENTIAL (PRIMARY) HYPERTENSION Status: Chronic (13) Secondary hyperparathyroidism of renal origin Code(s): N25.81 - SECONDARY HYPERPARATHYROIDISM OF RENAL ORIGIN Status: Chronic (14) Community acquired pneumonia Code(s): J18.9 - PNEUMONIA, UNSPECIFIED ORGANISM Status: Acute (15) Influenza B Code(s): J10.1 - FLU DUE TO OTH IDENT INFLUENZA VIRUS W OTH RESP MANIFEST Status: Acute (16) Vitamin D deficiency Code(s): E55.9 - VITAMIN D DEFICIENCY, UNSPECIFIED Status: Acute - Plan cont current plan of care, plan discussed w/ family, continue antibiotics, social welfare research worker * now HD started * continue HD as per nephrology * pt is doing well * she will need arrangement for HD on discharge * medication reviewed as below * symptomatic treatment. Review of Systems - Review of Systems ENT: negative: Ear Pain, Ear Discharge, Nose Pain, Nose Discharge, Nose Congestion, Mouth Pain, Mouth Swelling, Throat Pain, Throat Swelling, Other Respiratory: negative: Cough, Dry, Shortness of Breath, Hemoptysis, SOB with Excertion, Pleuritic Pain, Sputum, Wheezing Cardiovascular: negative: chest pain, palpitations, orthopnea, paroxysmal nocturnal dyspnea, edema, light headedness, other Gastrointestinal: negative: Nausea, Vomiting, Abdominal Pain, Diarrhea, Constipation, Melena, Hematochezia, Other Genitourinary: negative: Dysuria, Frequency, Incontinence, Hematuria, Retention , Other Musculoskeletal: negative: Neck Pain, Shoulder Pain, Arm Pain, Back Pain, Hand Pain, Leg Pain, Foot Pain, Other - Medications/Allergies Allergies/Adverse Reactions: Allergies Allergy/AdvReac Type Severity Reaction Status Date / Time No Known Drug Allergies Allergy Verified 06/06/17 22:31 Medications: Current Medications Acetaminophen (Tylenol) 650 mg PO Q4H PRN PRN Reason: Headache/Fever or Pain Last Admin: 06/09/17 01:45 Dose: 650 mg Acetaminophen (Tylenol) 1,000 mg PO Q6H PRN PRN Reason: Moderate to Severe Pain (6-10) Hydrocodone Bitart/Acetaminophen ([place] 5/325) 1 tab PO Q4H PRN PRN Reason: Moderate Pain (4-6) Last Admin: 06/09/17 01:46 Dose: 1 tab Al Hydroxide/Mg Hydroxide (Maalox) 30 ml PO Q6H PRN PRN Reason: Heartburn or Indigestion Amlodipine Besylate (Norvasc) 10 mg PO DAILY [facility] Last Admin: 06/10/17 09:25 Dose: 10 mg Artificial Tears (Tears Naturale) 0 drop EA EYE PRN PRN PRN Reason: Dry Eyes Aspirin (Aspirin Chewable) 81 mg PO DAILY [facility] Last Admin: 06/10/17 09:25 Dose: 81 mg Atorvastatin Calcium (Lipitor) 10 mg PO [facility] Last Admin: 06/09/17 21:21 Dose: 10 mg Calcitriol (Rocaltrol) 0.25 mcg PO DAILY [facility] Last Admin: 06/10/17 09:26 Dose: 0.25 mcg Calcium Acetate (Phoslo) 1,334 mg PO TID[facility] Last Admin: 06/10/17 09:21 Dose: 1,334 mg Carvedilol (Coreg) 12.5 mg PO BID-[facility] Last Admin: 06/10/17 09:23 Dose: 12.5 mg Cefazolin Sodium (Ancef) 2 gm SLOW IVP [place] Last Admin: 06/10/17 09:35 Dose: 2 gm Cholecalciferol (Vitamin D3) 2,000 units PO BID [facility] Last Admin: 06/10/17 09:22 Dose: 2,000 units Clonidine (Catapres) 0.1 mg PO Q4H PRN PRN Reason: Systolic BP > 180 Last Admin: 06/10/17 04:35 Dose: 0.1 mg Dextrose/Water (Dextrose 50%) 25 gm IVP PRN PRN PRN Reason: HYPOGLYCEMIA PROTOCOL Epoetin Oz (Procrit) 10,000 units IVP [facility] Famotidine (Pepcid) 20 mg PO DAILY [facility] Last Admin: 06/10/17 09:25 Dose: 20 mg Ferrous Sulfate (Feosol) 325 mg PO QAM[facility] Last Admin: 06/10/17 09:22 Dose: 325 mg Gabapentin (Neurontin) 100 mg PO DAILY [facility] Last Admin: 06/10/17 09:24 Dose: 100 mg Glucagon (Glucagon) 1 mg IM PRN PRN PRN Reason: HYPOGLYCEMIA PROTOCOL Guaifenesin (Robitussin Sf) 200 mg PO Q4H PRN PRN Reason: Cough Last Admin: 06/07/17 17:22 Dose: 200 mg Heparin Sodium (Porcine) (Heparin) 5,000 units SC BID [facility] Last Admin: 06/10/17 09:26 Dose: 5,000 units Hydralazine HCl (Apresoline) 10 mg SLOW IVP Q4H PRN PRN Reason: Systolic BP > 180 Ceftriaxone Sodium 1 gm/ (Syringe 0.4 ml/ Sterile Water) 10 mls @ 120 mls/hr SLOW IVP Q24HR [facility] Last Admin: 06/10/17 09:38 Dose: 10 mls Dextrose/Water (D5w) 1,000 mls @ 0 mls/hr IV INF PRN; As Directed PRN Reason: HYPOGLYCEMIA PROTOCOL Levofloxacin 500 mg/ Device 100 mls @ 100 mls/hr IVPB Q2DAYS [facility] Last Admin: 06/10/17 09:39 Dose: 100 mls Insulin Human Lispro (Humalog) 0 units SC .MODERATE SLIDING SC PRN; Protocol PRN Reason: MODERATE SLIDING SCALE Last Admin: 06/08/17 13:09 Dose: 4 unit Loperamide HCl (Imodium) 2 mg PO PRN PRN PRN Reason: Diarrhea/Loose Stools Last Admin: 06/07/17 10:36 Dose: 2 mg Loratadine (Claritin) 10 mg PO DAILYPRN PRN PRN Reason: Sinus Symptoms Magnesium Hydroxide (Milk Of Magnesium) 30 ml PO DAILYPRN PRN PRN Reason: Constipation Last Admin: 06/08/17 09:22 Dose: 30 ml Mineral Oil/White Petrolatum (Eucerin Cream) 0 gm TOP BIDPRN PRN PRN Reason: Dry Skin Nitroglycerin (Nitrostat) 0.4 mg SL Q5MIN PRN PRN Reason: Chest Pain Read Ppd Test Site 0 each PO ONE [facility] Stop: 06/11/17 09:00 Ondansetron HCl (Zofran Odt) 4 mg PO Q6H PRN PRN Reason: Nausea/Vomiting Last Admin: 06/07/17 19:41 Dose: 4 mg Ondansetron HCl (Zofran) 4 mg IVP Q6H PRN PRN Reason: Nausea/Vomiting Oseltamivir Phosphate (Tamiflu) 30 mg PO DAILY [facility] Last Admin: 06/10/17 09:34 Dose: 30 mg Pantoprazole Sodium (Protonix) 40 mg PO DAILY [facility] Last Admin: 06/10/17 09:25 Dose: 40 mg Paricalcitol (Zemplar) 2 mcg IVP [facility] Phenol (Chloraseptic [place] 180 Ml Bot) 0 ml PO PRN PRN PRN Reason: Sore Throat Senna (Senokot) 2 tab PO HSPRN PRN PRN Reason: Constipation Sodium Chloride ([place] Nasal [place] 0.65%) 0 ml EA NARE QIDPRN PRN PRN Reason: Nasal Congestion Sodium Chloride (Flush - Normal Saline) 10 ml IVF Q12HR [facility] Last Admin: 06/10/17 09:26 Dose: 10 ml Sodium Chloride (Flush - Normal Saline) 10 ml IVF PRN PRN PRN Reason: Saline Flush Tramadol HCl (Ultram) 50 mg PO Q6H PRN PRN Reason: Pain Tramadol HCl (Ultram) 100 mg PO Q6H PRN PRN Reason: Pain Tuberculin PPD (Aplisol) 0.1 ml I-DERMAL ONE [facility] Stop: 06/11/17 21:01 Last Admin: 06/08/17 23:48 Dose: 0.1 ml Zolpidem Tartrate (Ambien) 5 mg PO HSPRN PRN PRN Reason: Insomnia
[2017-06-10] MEDS: HumaLOG 300 UNITS/3 ML VIAL SC PRN (12:37)
--- NOTE | 2017-06-10 20:56 | PRG ---
DATE OF SERVICE: 06/10/2017 SUBJECTIVE: Patient was seen and examined at bedside and overnight events noted. Patient denies any shortness of breath or chest pain or palpitation. No history of nausea or vomiting or diarrhea or f ever or chills or cramps. OBJECTIVE: GENERAL: This is a well-built female in no apparent distress. VITAL SIGNS: Temperature 98.0, pulse 67, respiratory rate 18, blood pressure 118/73. HEENT: Atraumatic, normocephalic. Oral mucosa is moist. NECK: Supple. CARDIOVASCULAR: S1, S2 heard. Rate and rhythm regular. RESPIRATORY: Clear to auscultation. GASTROINTESTINAL: Abdomen is soft. MUSCULOSKELETAL: No tenderness. No edema. DERMATOLOGIC: No skin rash. NEUROLOGIC: Alert and awake and oriented x3. No focal neurologic deficits. Moving all the extremiti es. PSYCHIATRIC: Mood and affect normal. LABORATORY DATA: Not done today. ASSESSMENT AND PLAN: 1. End-stage renal disease. Plan is continue on dialysis as tolerated. 2. No dialysis today. We will continue dialysis Sunday, Sunday, and Sunday. 3. Diabetic nephropathy. 4. Proteinuria. 5. Anemia of chronic disease. 6. Hypertension. 7. Secondary hyperparathyroidism. 8. Continue Zemplar and Epogen. Follow with case management for outpatient placement. We will have dialysis Sunday, Sunday, and Sunday. Thank you for the consult.
[2017-06-10] MEDS ORDERED: READ PPD TEST SITE PO SCH (21:00)
[2017-06-10] MEDS: Atorvastatin Calcium 10 MG TAB PO SCH (21:45)
[2017-06-11 05:25] LABS: Anion Gap 15 mmol/L (10-20); BUN (Urea Nitrogen) 53 mg/dL (9.8-20.1); Calc. Creatinine Clearance 13 mL/min (70-130); Calcium 7.5 mg/dL (7.8-10.44); Carbon Dioxide 28 mmol/L (22-29); Chloride 100 mmol/L (98-107); Estimated GFR-MDRD 8; Glucose 154 mg/dL (70-105); Sodium 139 mmol/L (136-145)
[2017-06-11] MEDS: Ondansetron HCl/PF 4 MG/2 ML Vial IVP PRN (08:02)
[2017-06-11] MEDS: Calcium Acetate 667 MG CAP PO SCH ×3 (08:02→16:34)
[2017-06-11] MEDS: Calcitriol 0.25 MCG CAP PO SCH (08:05)
[2017-06-11] MEDS: Carvedilol 6.25 MG TAB PO SCH ×2 (08:05→16:34)
[2017-06-11] MEDS: Ferrous Sulfate 325 MG TAB PO SCH (08:08)
[2017-06-11] MEDS: Famotidine 20 MG TAB PO SCH (08:10)
[2017-06-11] MEDS: Amlodipine 10 MG TAB PO SCH (08:12)
[2017-06-11] MEDS: Gabapentin 100 MG CAP PO SCH (08:12)
[2017-06-11] MEDS: Heparin 5,000 UNITS/ML VIAL SC SCH ×2 (08:14→20:25)
[2017-06-11] MEDS: Oseltamivir 6 MG/ML ORAL SUSP PO SCH (08:15)
--- NOTE | 2017-06-11 10:34 | PDOC.PN ---
- Subjective Encounter Start Date: 06/11/17 Encounter Start Time: 08:40 pt seen in HD, doing well, no fever, no overnight event - Objective Resuscitation Status: Resuscitation Status FULL:Full Resuscitation MAR Reviewed: Yes Vital Signs & Weight: Vital Signs (12 hours) Temp Pulse Resp BP BP Pulse Ox 06/11/17 08:12 76 174/73 H 06/11/17 08:05 98.2 F 76 19 174/73 H 174/73 H 96 06/11/17 08:00 98.2 F 76 19 96 06/11/17 04:00 98.2 F 68 20 129/71 96 06/11/17 00:00 97.4 F L 66 20 129/65 96 Weight Weight 175 lb 0.752 oz I&O: 06/10/17 06/11/17 06/12/17 06:59 06:59 06:59 Intake Total 490 1300 Output Total 1000 Balance -510 1300 Result Diagrams: 06/08/17 04:16 06/11/17 04:57 Additional Labs: Accuchecks 06/11/17 06/10/17 06/10/17 04:43 20:46 16:53 POC Glucose 176 H 165 H 119 H 06/10/17 11:53 POC Glucose 237 H Phys Exam - Physical Examination Constitutional: NAD HEENT: PERRLA, moist MMs, sclera anicteric Neck: no JVD, supple Respiratory: no wheezing, no rales, no rhonchi Cardiovascular: RRR, no significant murmur, no rub Gastrointestinal: soft, non-tender, no distention, positive bowel sounds Musculoskeletal: no edema, pulses present Neurological: non-focal, normal sensation Lymphatic: no nodes Psychiatric: normal affect Skin: no rash, normal turgor Dx/Plan (1) Acute metabolic encephalopathy due to hypoglycemia Code(s): G93.41 - METABOLIC ENCEPHALOPATHY; E16.2 - HYPOGLYCEMIA, UNSPECIFIED Status: Resolved (2) Acute worsening of stage 3 chronic kidney disease Code(s): N18.3 - CHRONIC KIDNEY DISEASE, STAGE 3 (MODERATE) Status: Acute Comment: now ESRD, started on HD (3) Hypoglycemia associated with type 2 diabetes mellitus Code(s): E11.649 - TYPE 2 DIABETES MELLITUS WITH HYPOGLYCEMIA WITHOUT COMA Status: Resolved (4) Metabolic acidosis Code(s): E87.2 - ACIDOSIS Status: Resolved (5) Sepsis Code(s): A41.9 - SEPSIS, UNSPECIFIED ORGANISM Status: Resolved (6) UTI (urinary tract infection) Status: Acute (7) Anemia of renal disease Code(s): D63.1 - ANEMIA IN CHRONIC KIDNEY DISEASE Status: Chronic (8) DM type 2 (diabetes mellitus, type 2) Status: Chronic (9) Diabetic neuropathy Code(s): E11.40 - TYPE 2 DIABETES MELLITUS WITH DIABETIC NEUROPATHY, UNSP Status: Chronic (10) Dyslipidemia Code(s): E78.5 - HYPERLIPIDEMIA, UNSPECIFIED Status: Chronic (11) GERD (gastroesophageal reflux disease) Code(s): K21.9 - GASTRO-ESOPHAGEAL REFLUX DISEASE WITHOUT ESOPHAGITIS Status: Chronic (12) HTN (hypertension) Code(s): I10 - ESSENTIAL (PRIMARY) HYPERTENSION Status: Chronic (13) Secondary hyperparathyroidism of renal origin Code(s): N25.81 - SECONDARY HYPERPARATHYROIDISM OF RENAL ORIGIN Status: Chronic (14) Community acquired pneumonia Code(s): J18.9 - PNEUMONIA, UNSPECIFIED ORGANISM Status: Acute (15) Influenza B Code(s): J10.1 - FLU DUE TO OTH IDENT INFLUENZA VIRUS W OTH RESP MANIFEST Status: Acute (16) Vitamin D deficiency Code(s): E55.9 - VITAMIN D DEFICIENCY, UNSPECIFIED Status: Acute - Plan cont current plan of care, plan discussed w/ family, continue antibiotics, social insurance adviser * continue HD as per nephrology * will need social work for arrangement of outpt HD * medication reviewed as below * symptomatic treatment. Review of Systems - Review of Systems ENT: negative: Ear Pain, Ear Discharge, Nose Pain, Nose Discharge, Nose Congestion, Mouth Pain, Mouth Swelling, Throat Pain, Throat Swelling, Other Respiratory: negative: Cough, Dry, Shortness of Breath, Hemoptysis, SOB with Excertion, Pleuritic Pain, Sputum, Wheezing Cardiovascular: negative: chest pain, palpitations, orthopnea, paroxysmal nocturnal dyspnea, edema, light headedness, other Gastrointestinal: negative: Nausea, Vomiting, Abdominal Pain, Diarrhea, Constipation, Melena, Hematochezia, Other Genitourinary: negative: Dysuria, Frequency, Incontinence, Hematuria, Retention , Other Musculoskeletal: negative: Neck Pain, Shoulder Pain, Arm Pain, Back Pain, Hand Pain, Leg Pain, Foot Pain, Other Skin: negative: Rash, Lesions, Eder, Bruising, Other - Medications/Allergies Allergies/Adverse Reactions: Allergies Allergy/AdvReac Type Severity Reaction Status Date / Time No Known Drug Allergies Allergy Verified 06/06/17 22:31 Medications: Current Medications Acetaminophen (Tylenol) 650 mg PO Q4H PRN PRN Reason: Headache/Fever or Pain Last Admin: 06/09/17 01:45 Dose: 650 mg Acetaminophen (Tylenol) 1,000 mg PO Q6H PRN PRN Reason: Moderate to Severe Pain (6-10) Hydrocodone Bitart/Acetaminophen ([place] 5/325) 1 tab PO Q4H PRN PRN Reason: Moderate Pain (4-6) Last Admin: 06/09/17 01:46 Dose: 1 tab Al Hydroxide/Mg Hydroxide (Maalox) 30 ml PO Q6H PRN PRN Reason: Heartburn or Indigestion Amlodipine Besylate (Norvasc) 10 mg PO DAILY [facility] Last Admin: 06/11/17 08:12 Dose: 10 mg Artificial Tears (Tears Naturale) 0 drop EA EYE PRN PRN PRN Reason: Dry Eyes Aspirin (Aspirin Chewable) 81 mg PO DAILY [facility] Last Admin: 06/11/17 08:10 Dose: 81 mg Atorvastatin Calcium (Lipitor) 10 mg PO [facility] Last Admin: 06/10/17 21:45 Dose: 10 mg Calcitriol (Rocaltrol) 0.25 mcg PO DAILY [facility] Last Admin: 06/11/17 08:05 Dose: 0.25 mcg Calcium Acetate (Phoslo) 1,334 mg PO TID[facility] Last Admin: 06/11/17 08:02 Dose: 1,334 mg Carvedilol (Coreg) 12.5 mg PO BID[facility] Last Admin: 06/11/17 08:05 Dose: 12.5 mg Cefazolin Sodium (Ancef) 2 gm SLOW IVP [facility] Cholecalciferol (Vitamin D3) 2,000 units PO BID [facility] Last Admin: 06/11/17 08:11 Dose: 2,000 units Clonidine (Catapres) 0.1 mg PO Q4H PRN PRN Reason: Systolic BP > 180 Last Admin: 06/10/17 04:35 Dose: 0.1 mg Dextrose/Water (Dextrose 50%) 25 gm IVP PRN PRN PRN Reason: HYPOGLYCEMIA PROTOCOL Epoetin Oz (Procrit) 10,000 units IVP MWF [facility] Famotidine (Pepcid) 20 mg PO DAILY [facility] Last Admin: 06/11/17 08:10 Dose: 20 mg Ferrous Sulfate (Feosol) 325 mg PO QAM-[facility] Last Admin: 06/11/17 08:08 Dose: 325 mg Gabapentin (Neurontin) 100 mg PO DAILY [facility] Last Admin: 06/11/17 08:12 Dose: 100 mg Glucagon (Glucagon) 1 mg IM PRN PRN PRN Reason: HYPOGLYCEMIA PROTOCOL Guaifenesin (Robitussin Sf) 200 mg PO Q4H PRN PRN Reason: Cough Last Admin: 06/07/17 17:22 Dose: 200 mg Heparin Sodium (Porcine) (Heparin) 5,000 units SC BID [facility] Last Admin: 06/11/17 08:14 Dose: Not Given Hydralazine HCl (Apresoline) 10 mg SLOW IVP Q4H PRN PRN Reason: Systolic BP > 180 Ceftriaxone Sodium 1 gm/ (Syringe 0.4 ml/ Sterile Water) 10 mls @ 120 mls/hr SLOW IVP Q24HR [facility] Last Admin: 06/10/17 09:38 Dose: 10 mls Dextrose/Water (D5w) 1,000 mls @ 0 mls/hr IV INF PRN; As Directed PRN Reason: HYPOGLYCEMIA PROTOCOL Levofloxacin 500 mg/ Device 100 mls @ 100 mls/hr IVPB Q2DAYS [facility] Last Admin: 06/10/17 09:39 Dose: 100 mls Insulin Human Lispro (Humalog) 0 units SC .MODERATE SLIDING SC PRN; Protocol PRN Reason: MODERATE SLIDING SCALE Last Admin: 06/10/17 12:37 Dose: 4 unit Loperamide HCl (Imodium) 2 mg PO PRN PRN PRN Reason: Diarrhea/Loose Stools Last Admin: 06/07/17 10:36 Dose: 2 mg Loratadine (Claritin) 10 mg PO DAILYPRN PRN PRN Reason: Sinus Symptoms Magnesium Hydroxide (Milk Of Magnesium) 30 ml PO DAILYPRN PRN PRN Reason: Constipation Last Admin: 06/08/17 09:22 Dose: 30 ml Mineral Oil/White Petrolatum (Eucerin Cream) 0 gm TOP BIDPRN PRN PRN Reason: Dry Skin Nitroglycerin (Nitrostat) 0.4 mg SL Q5MIN PRN PRN Reason: Chest Pain Ondansetron HCl (Zofran Odt) 4 mg PO Q6H PRN PRN Reason: Nausea/Vomiting Last Admin: 06/07/17 19:41 Dose: 4 mg Ondansetron HCl (Zofran) 4 mg IVP Q6H PRN PRN Reason: Nausea/Vomiting Last Admin: 06/11/17 08:02 Dose: 4 mg Oseltamivir Phosphate (Tamiflu) 30 mg PO DAILY [facility] Last Admin: 06/11/17 08:15 Dose: 30 mg Pantoprazole Sodium (Protonix) 40 mg PO DAILY [facility] Last Admin: 06/11/17 08:07 Dose: 40 mg Paricalcitol (Zemplar) 2 mcg IVP [facility] Phenol (Chloraseptic [place] 180 Ml Bot) 0 ml PO PRN PRN PRN Reason: Sore Throat Senna (Senokot) 2 tab PO HSPRN PRN PRN Reason: Constipation Sodium Chloride ([place] Nasal [place] 0.65%) 0 ml EA NARE QIDPRN PRN PRN Reason: Nasal Congestion Sodium Chloride (Flush - Normal Saline) 10 ml IVF Q12HR [facility] Last Admin: 06/10/17 21:46 Dose: 10 ml Sodium Chloride (Flush - Normal Saline) 10 ml IVF PRN PRN PRN Reason: Saline Flush Tramadol HCl (Ultram) 50 mg PO Q6H PRN PRN Reason: Pain Tramadol HCl (Ultram) 100 mg PO Q6H PRN PRN Reason: Pain Tuberculin PPD (Aplisol) 0.1 ml I-DERMAL ONE [facility] Stop: 06/11/17 21:01 Last Admin: 06/08/17 23:48 Dose: 0.1 ml Zolpidem Tartrate (Ambien) 5 mg PO HSPRN PRN PRN Reason: Insomnia
--- NOTE | 2017-06-11 13:03 | PRG ---
DATE OF SERVICE: 06/11/2017 SUBJECTIVE: This is a 57-year-old female being seen for end-stage renal disease. Patient denies any nausea, vomiting or chest pain. PHYSICAL EXAMINATION: GENERAL: Patient is awake, alert. VITAL SIGNS: Afebrile, pulse 68, breathing at 20, blood pressure 129/71. HEAD/NECK: Normocephalic. Atraumatic. EYES: EOMI. No deformity. EARS: Clear. No ulcers. NOSE: Intact. No lesions. MOUTH: Clear. No discharge. THROAT: Clear. No exudate. LUNGS: Clear. No crackles. CARDIAC: S1, S2. No rub. ABDOMEN: Benign. BS+. GENITALIA/RECTUM: Steen absent. BACK/EXTREMITIES: Edema 0+ Ulcer- NEUROLOGICAL: Alert and motor intact. SKIN: Rash- Bruise- LYMPHATICS: Edema- Ulcer- LABORATORY DATA: Show hemoglobin 9.4. ASSESSMENT AND PLAN: 1. Stage 6 chronic kidney disease. We will plan hemodialysis. 2. Hypertension, stable. 3. Anemia, stable. 4. Medications based on glomerular filtration rate are appropriate. MTDD
[2017-06-11] MEDS: cefTRIAXone\\ROCEPHIN 1 GM, Syringe 0.4 ML in Sterile Water 9.6 ML SLOW IVP SCH (13:37)
[2017-06-11] MEDS: Epoetin (NON-ESRD) 10,000 UNITS/ML VIAL IVP SCH (13:38)
--- NOTE | 2017-06-11 18:28 | PRG ---
DATE OF SERVICE: 06/11/2017 SUBJECTIVE: Shelby Ashraf is doing well today. PLAN: Plan is to place a dialysis fistula on Sunday. She will continue dialysis. She can be dis charged home the same day or the next day, as this is usually an outpatient procedure.
[2017-06-11] MEDS: Atorvastatin Calcium 10 MG TAB PO SCH (20:24)
[2017-06-11] MEDS: HumaLOG 300 UNITS/3 ML VIAL SC PRN (20:30)
[2017-06-12] MEDS: Carvedilol 6.25 MG TAB PO SCH ×2 (08:41→17:20)
[2017-06-12] MEDS: Calcitriol 0.25 MCG CAP PO SCH (08:41)
[2017-06-12] MEDS: Calcium Acetate 667 MG CAP PO SCH ×3 (08:41→17:20)
[2017-06-12] MEDS: Gabapentin 100 MG CAP PO SCH (08:46)
[2017-06-12] MEDS: Ferrous Sulfate 325 MG TAB PO SCH (08:47)
[2017-06-12] MEDS: Amlodipine 10 MG TAB PO SCH (08:48)
[2017-06-12] MEDS: Famotidine 20 MG TAB PO SCH (08:50)
[2017-06-12] MEDS: Heparin 5,000 UNITS/ML VIAL SC SCH ×2 (08:50→20:28)
[2017-06-12] MEDS: cefTRIAXone\\ROCEPHIN 1 GM, Syringe 0.4 ML in Sterile Water 9.6 ML SLOW IVP SCH (08:50)
[2017-06-12] MEDS: Oseltamivir 6 MG/ML ORAL SUSP PO SCH (08:52)
--- NOTE | 2017-06-12 09:38 | PRG ---
DATE OF SERVICE: 06/12/2017 SUBJECTIVE: This is a 57-year-old female being seen for end-stage renal disease. Patient denies any nausea, vomiting or chest pain. PHYSICAL EXAMINATION: GENERAL: Patient is awake, alert. VITAL SIGNS: Afebrile, pulse 64, breathing at 16, blood pressure 164/72. HEAD/NECK: Normocephalic. Atraumatic. EYES: EOMI. No deformity. EARS: Clear. No ulcers. NOSE: Intact. No lesions. MOUTH: Clear. No discharge. THROAT: Clear. No exudate. LUNGS: Clear. No crackles. CARDIAC: S1, S2. No rub. ABDOMEN: Benign. BS+. GENITALIA/RECTUM: Steen absent. BACK/EXTREMITIES: Edema 0+ Ulcer- NEUROLOGICAL: Alert and motor intact. SKIN: Rash- Bruise- LYMPHATICS: Edema- Ulcer- LABORATORY DATA: Show hemoglobin 9.4. ASSESSMENT AND PLAN: 1. Stage 6 chronic kidney disease, continue hemodialysis. 2. Hypertension, stable. 3. Anemia, stable. 4. Medications based on glomerular filtration rate are appropriate. The patient was given choices o f dialysis.
--- NOTE | 2017-06-12 09:48 | PDOC.PN ---
- Subjective Encounter Start Date: 06/12/17 Encounter Start Time: 08:50 Patient seen and examined. No new complaints. No overnight events - Objective Resuscitation Status: Resuscitation Status FULL:Full Resuscitation MAR Reviewed: Yes Vital Signs & Weight: Vital Signs (12 hours) Temp Pulse Resp BP BP Pulse Ox 06/12/17 08:48 65 164/72 H 06/12/17 08:41 164/72 H 06/12/17 08:00 97.7 F 65 18 93 L 06/12/17 07:40 97.7 F 64 18 164/72 H 93 L Weight Weight 175 lb 0.752 oz I&O: 06/11/17 06/12/17 06/13/17 06:59 06:59 06:59 Intake Total 1300 1000 Balance 1300 1000 Result Diagrams: 06/08/17 04:16 06/11/17 04:57 Additional Labs: Accuchecks 06/12/17 06/11/17 06/11/17 05:57 19:41 16:23 POC Glucose 141 H 221 H 206 H 06/11/17 13:29 POC Glucose 142 H Phys Exam - Physical Examination Constitutional: NAD HEENT: PERRLA, moist MMs, sclera anicteric Neck: no JVD, supple Respiratory: no wheezing, no rales, no rhonchi Cardiovascular: RRR, no significant murmur, no rub Gastrointestinal: soft, non-tender, no distention, positive bowel sounds Musculoskeletal: no edema, pulses present Neurological: non-focal, normal sensation Lymphatic: no nodes Psychiatric: normal affect, A&O x 3 Skin: no rash, normal turgor Dx/Plan (1) Acute metabolic encephalopathy due to hypoglycemia Code(s): G93.41 - METABOLIC ENCEPHALOPATHY; E16.2 - HYPOGLYCEMIA, UNSPECIFIED Status: Resolved (2) Acute worsening of stage 3 chronic kidney disease Code(s): N18.3 - CHRONIC KIDNEY DISEASE, STAGE 3 (MODERATE) Status: Acute Comment: now ESRD, started on HD (3) Hypoglycemia associated with type 2 diabetes mellitus Code(s): E11.649 - TYPE 2 DIABETES MELLITUS WITH HYPOGLYCEMIA WITHOUT COMA Status: Resolved (4) Metabolic acidosis Code(s): E87.2 - ACIDOSIS Status: Resolved (5) Sepsis Code(s): A41.9 - SEPSIS, UNSPECIFIED ORGANISM Status: Resolved (6) UTI (urinary tract infection) Status: Acute (7) Anemia of renal disease Code(s): D63.1 - ANEMIA IN CHRONIC KIDNEY DISEASE Status: Chronic (8) DM type 2 (diabetes mellitus, type 2) Status: Chronic (9) Diabetic neuropathy Code(s): E11.40 - TYPE 2 DIABETES MELLITUS WITH DIABETIC NEUROPATHY, UNSP Status: Chronic (10) Dyslipidemia Code(s): E78.5 - HYPERLIPIDEMIA, UNSPECIFIED Status: Chronic (11) GERD (gastroesophageal reflux disease) Code(s): K21.9 - GASTRO-ESOPHAGEAL REFLUX DISEASE WITHOUT ESOPHAGITIS Status: Chronic (12) HTN (hypertension) Code(s): I10 - ESSENTIAL (PRIMARY) HYPERTENSION Status: Chronic (13) Secondary hyperparathyroidism of renal origin Code(s): N25.81 - SECONDARY HYPERPARATHYROIDISM OF RENAL ORIGIN Status: Chronic (14) Community acquired pneumonia Code(s): J18.9 - PNEUMONIA, UNSPECIFIED ORGANISM Status: Acute (15) Influenza B Code(s): J10.1 - FLU DUE TO OTH IDENT INFLUENZA VIRUS W OTH RESP MANIFEST Status: Acute (16) Vitamin D deficiency Code(s): E55.9 - VITAMIN D DEFICIENCY, UNSPECIFIED Status: Acute - Plan cont current plan of care, 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 Review of Systems - Review of Systems Constitutional: negative: fever, chills, sweats, weakness, malaise, other ENT: negative: Ear Pain, Ear Discharge, Nose Pain, Nose Discharge, Nose Congestion, Mouth Pain, Mouth Swelling, Throat Pain, Throat Swelling, Other Respiratory: negative: Cough, Dry, Shortness of Breath, Hemoptysis, SOB with Excertion, Pleuritic Pain, Sputum, Wheezing Cardiovascular: negative: chest pain, palpitations, orthopnea, paroxysmal nocturnal dyspnea, edema, light headedness, other Gastrointestinal: negative: Nausea, Vomiting, Abdominal Pain, Diarrhea, Constipation, Melena, Hematochezia, Other Genitourinary: negative: Dysuria, Frequency, Incontinence, Hematuria, Retention , Other Musculoskeletal: negative: Neck Pain, Shoulder Pain, Arm Pain, Back Pain, Hand Pain, Leg Pain, Foot Pain, Other Skin: negative: Rash, Lesions, Eder, Bruising, Other - Medications/Allergies Allergies/Adverse Reactions: Allergies Allergy/AdvReac Type Severity Reaction Status Date / Time No Known Drug Allergies Allergy Verified 06/06/17 22:31 Medications: Current Medications Acetaminophen (Tylenol) 650 mg PO Q4H PRN PRN Reason: Headache/Fever or Pain Last Admin: 06/09/17 01:45 Dose: 650 mg Acetaminophen (Tylenol) 1,000 mg PO Q6H PRN PRN Reason: Moderate to Severe Pain (6-10) Hydrocodone Bitart/Acetaminophen ([place] 5/325) 1 tab PO Q4H PRN PRN Reason: Moderate Pain (4-6) Last Admin: 06/09/17 01:46 Dose: 1 tab Al Hydroxide/Mg Hydroxide (Maalox) 30 ml PO Q6H PRN PRN Reason: Heartburn or Indigestion Amlodipine Besylate (Norvasc) 10 mg PO DAILY [facility] Last Admin: 06/12/17 08:48 Dose: 10 mg Artificial Tears (Tears Naturale) 0 drop EA EYE PRN PRN PRN Reason: Dry Eyes Aspirin (Aspirin Chewable) 81 mg PO DAILY [facility] Last Admin: 06/12/17 08:47 Dose: 81 mg Atorvastatin Calcium (Lipitor) 10 mg PO [facility] Last Admin: 06/11/17 20:24 Dose: 10 mg Calcitriol (Rocaltrol) 0.25 mcg PO DAILY [facility] Last Admin: 06/12/17 08:41 Dose: 0.25 mcg Calcium Acetate (Phoslo) 1,334 mg PO TID-[facility] Last Admin: 06/12/17 08:41 Dose: 1,334 mg Carvedilol (Coreg) 12.5 mg PO BID-[facility] Last Admin: 06/12/17 08:41 Dose: 12.5 mg Cefazolin Sodium (Ancef) 2 gm SLOW IVP [facility] Cholecalciferol (Vitamin D3) 2,000 units PO BID [facility] Last Admin: 06/12/17 08:45 Dose: 2,000 units Clonidine (Catapres) 0.1 mg PO Q4H PRN PRN Reason: Systolic BP > 180 Last Admin: 06/10/17 04:35 Dose: 0.1 mg Dextrose/Water (Dextrose 50%) 25 gm IVP PRN PRN PRN Reason: HYPOGLYCEMIA PROTOCOL Epoetin Oz (Procrit) 10,000 units IVP MWF [facility] Last Admin: 06/11/17 13:38 Dose: 10,000 units Famotidine (Pepcid) 20 mg PO DAILY [facility] Last Admin: 06/12/17 08:50 Dose: 20 mg Ferrous Sulfate (Feosol) 325 mg PO QAM-WM [facility] Last Admin: 06/12/17 08:47 Dose: 325 mg Gabapentin (Neurontin) 100 mg PO DAILY [facility] Last Admin: 06/12/17 08:46 Dose: 100 mg Glucagon (Glucagon) 1 mg IM PRN PRN PRN Reason: HYPOGLYCEMIA PROTOCOL Guaifenesin (Robitussin Sf) 200 mg PO Q4H PRN PRN Reason: Cough Last Admin: 06/07/17 17:22 Dose: 200 mg Heparin Sodium (Porcine) (Heparin) 5,000 units SC BID [facility] Last Admin: 06/12/17 08:50 Dose: Not Given Hydralazine HCl (Apresoline) 10 mg SLOW IVP Q4H PRN PRN Reason: Systolic BP > 180 Ceftriaxone Sodium 1 gm/ (Syringe 0.4 ml/ Sterile Water) 10 mls @ 120 mls/hr SLOW IVP Q24HR [facility] Last Admin: 06/12/17 08:50 Dose: 10 mls Dextrose/Water (D5w) 1,000 mls @ 0 mls/hr IV INF PRN; As Directed PRN Reason: HYPOGLYCEMIA PROTOCOL Levofloxacin 500 mg/ Device 100 mls @ 100 mls/hr IVPB Q2DAYS [facility] Last Admin: 06/10/17 09:39 Dose: 100 mls Insulin Human Lispro (Humalog) 0 units SC .MODERATE SLIDING SC PRN; Protocol PRN Reason: MODERATE SLIDING SCALE Last Admin: 06/11/17 20:30 Dose: 4 unit Loperamide HCl (Imodium) 2 mg PO PRN PRN PRN Reason: Diarrhea/Loose Stools Last Admin: 06/07/17 10:36 Dose: 2 mg Loratadine (Claritin) 10 mg PO DAILYPRN PRN PRN Reason: Sinus Symptoms Magnesium Hydroxide (Milk Of Magnesium) 30 ml PO DAILYPRN PRN PRN Reason: Constipation Last Admin: 06/08/17 09:22 Dose: 30 ml Mineral Oil/White Petrolatum (Eucerin Cream) 0 gm TOP BIDPRN PRN PRN Reason: Dry Skin Nitroglycerin (Nitrostat) 0.4 mg SL Q5MIN PRN PRN Reason: Chest Pain Ondansetron HCl (Zofran Odt) 4 mg PO Q6H PRN PRN Reason: Nausea/Vomiting Last Admin: 06/07/17 19:41 Dose: 4 mg Ondansetron HCl (Zofran) 4 mg IVP Q6H PRN PRN Reason: Nausea/Vomiting Last Admin: 06/11/17 08:02 Dose: 4 mg Oseltamivir Phosphate (Tamiflu) 30 mg PO DAILY [facility] Last Admin: 06/12/17 08:52 Dose: 30 mg Pantoprazole Sodium (Protonix) 40 mg PO DAILY [facility] Last Admin: 06/12/17 08:42 Dose: 40 mg Paricalcitol (Zemplar) 2 mcg IVP [facility] Last Admin: 06/11/17 14:55 Dose: 2 mcg Phenol (Chloraseptic [place] 180 Ml Bot) 0 ml PO PRN PRN PRN Reason: Sore Throat Senna (Senokot) 2 tab PO HSPRN PRN PRN Reason: Constipation Sodium Chloride ([place] Nasal [place] 0.65%) 0 ml EA NARE QIDPRN PRN PRN Reason: Nasal Congestion Sodium Chloride (Flush - Normal Saline) 10 ml IVF Q12HR [facility] Last Admin: 06/12/17 08:52 Dose: 10 ml Sodium Chloride (Flush - Normal Saline) 10 ml IVF PRN PRN PRN Reason: Saline Flush Tramadol HCl (Ultram) 50 mg PO Q6H PRN PRN Reason: Pain Tramadol HCl (Ultram) 100 mg PO Q6H PRN PRN Reason: Pain Zolpidem Tartrate (Ambien) 5 mg PO HSPRN PRN PRN Reason: Insomnia
[2017-06-12] MEDS: HumaLOG 300 UNITS/3 ML VIAL SC PRN (10:49)
[2017-06-12] MEDS ORDERED: CEFAZOLIN/Water 2 GM/20 ML SYRINGE SLOW IVP SCH (16:30)
[2017-06-12] MEDS: Atorvastatin Calcium 10 MG TAB PO SCH (20:28)
[2017-06-13] MEDS: Carvedilol 6.25 MG TAB PO SCH ×2 (07:44→18:07)
[2017-06-13] MEDS: Calcium Acetate 667 MG CAP PO SCH ×3 (07:51→18:07)
[2017-06-13] MEDS: cefTRIAXone\\ROCEPHIN 1 GM, Syringe 0.4 ML in Sterile Water 9.6 ML SLOW IVP SCH ×2 (07:51→15:46)
[2017-06-13] MEDS: Ferrous Sulfate 325 MG TAB PO SCH (07:52)
[2017-06-13] MEDS: Amlodipine 10 MG TAB PO SCH (07:52)
[2017-06-13] MEDS: Calcitriol 0.25 MCG CAP PO SCH (09:22)
[2017-06-13] MEDS: Epoetin (NON-ESRD) 10,000 UNITS/ML VIAL IVP SCH ×2 (09:22→20:48)
[2017-06-13] MEDS: Heparin 5,000 UNITS/ML VIAL SC SCH ×2 (09:23→20:48)
[2017-06-13] MEDS: Famotidine 20 MG TAB PO SCH (09:23)
[2017-06-13] MEDS: Gabapentin 100 MG CAP PO SCH (09:23)
--- NOTE | 2017-06-13 09:41 | PRG ---
DATE OF SERVICE: 06/13/2017 SUBJECTIVE: This 57-year-old female being seen for end-stage renal disease. Patient denies any naus ea, vomiting or chest pain. PHYSICAL EXAMINATION: GENERAL: Patient is awake, alert. VITAL SIGNS: Pulse 74, breathing 16, blood pressure 131/79. HEAD/NECK: Normocephalic. Atraumatic. EYES: EOMI. No deformity. EARS: Clear. No ulcers. NOSE: Intact. No lesions. MOUTH: Clear. No discharge. THROAT: Clear. No exudate. LUNGS: Clear. No crackles. CARDIAC: S1, S2. No rub. ABDOMEN: Benign. BS+. GENITALIA/RECTUM: Steen absent. BACK/EXTREMITIES: Edema 0+ Ulcer- NEUROLOGICAL: Alert and motor intact. SKIN: Rash- Bruise- LYMPHATICS: Edema- Ulcer- LABORATORY DATA: Show hemoglobin of 9.4. ASSESSMENT: 1. Stage 6 chronic kidney disease. Continue hemodialysis. 2. Hypertension, stable. 3. Anemia, stable. 4. Medication based on glomerular filtration rate are appropriate.
--- NOTE | 2017-06-13 10:29 | PDOC.PN ---
- Subjective Encounter Start Date: 06/13/17 Encounter Start Time: 09:30 Patient seen and examined. No new complaints. No overnight events - Objective Resuscitation Status: Resuscitation Status FULL:Full Resuscitation MAR Reviewed: Yes Vital Signs & Weight: Vital Signs (12 hours) Temp Pulse Resp BP BP Pulse Ox 06/13/17 08:00 97.7 F 72 16 143/78 H 97 06/13/17 07:52 160/76 H 06/13/17 07:44 160/76 H 06/13/17 04:00 98.3 F 74 16 160/73 H 93 L 06/13/17 00:00 98.3 F 70 16 167/77 H 95 Weight Weight 175 lb 0.752 oz I&O: 06/12/17 06/13/17 06/14/17 06:59 06:59 06:59 Intake Total 1000 1400 Balance 1000 1400 Result Diagrams: 06/08/17 04:16 06/11/17 04:57 Additional Labs: Accuchecks 06/13/17 06/12/17 06/12/17 05:58 23:06 16:59 POC Glucose 165 H 213 H 163 H 06/12/17 10:50 POC Glucose 256 H Phys Exam - Physical Examination Constitutional: NAD HEENT: PERRLA, moist MMs, sclera anicteric Neck: no JVD, supple Respiratory: no wheezing, no rales, no rhonchi Cardiovascular: RRR, no significant murmur, no rub Gastrointestinal: soft, non-tender, no distention, positive bowel sounds Musculoskeletal: no edema, pulses present Neurological: non-focal, normal sensation, moves all 4 limbs Psychiatric: normal affect, A&O x 3 Skin: no rash, normal turgor Dx/Plan (1) Acute metabolic encephalopathy due to hypoglycemia Code(s): G93.41 - METABOLIC ENCEPHALOPATHY; E16.2 - HYPOGLYCEMIA, UNSPECIFIED Status: Resolved (2) Acute worsening of stage 3 chronic kidney disease Code(s): N18.3 - CHRONIC KIDNEY DISEASE, STAGE 3 (MODERATE) Status: Acute Comment: now ESRD, started on HD (3) Hypoglycemia associated with type 2 diabetes mellitus Code(s): E11.649 - TYPE 2 DIABETES MELLITUS WITH HYPOGLYCEMIA WITHOUT COMA Status: Resolved (4) Metabolic acidosis Code(s): E87.2 - ACIDOSIS Status: Resolved (5) Sepsis Code(s): A41.9 - SEPSIS, UNSPECIFIED ORGANISM Status: Resolved (6) UTI (urinary tract infection) Status: Acute (7) Anemia of renal disease Code(s): D63.1 - ANEMIA IN CHRONIC KIDNEY DISEASE Status: Chronic (8) DM type 2 (diabetes mellitus, type 2) Status: Chronic (9) Diabetic neuropathy Code(s): E11.40 - TYPE 2 DIABETES MELLITUS WITH DIABETIC NEUROPATHY, UNSP Status: Chronic (10) Dyslipidemia Code(s): E78.5 - HYPERLIPIDEMIA, UNSPECIFIED Status: Chronic (11) GERD (gastroesophageal reflux disease) Code(s): K21.9 - GASTRO-ESOPHAGEAL REFLUX DISEASE WITHOUT ESOPHAGITIS Status: Chronic (12) HTN (hypertension) Code(s): I10 - ESSENTIAL (PRIMARY) HYPERTENSION Status: Chronic (13) Secondary hyperparathyroidism of renal origin Code(s): N25.81 - SECONDARY HYPERPARATHYROIDISM OF RENAL ORIGIN Status: Chronic (14) Community acquired pneumonia Code(s): J18.9 - PNEUMONIA, UNSPECIFIED ORGANISM Status: Acute (15) Influenza B Code(s): J10.1 - FLU DUE TO OTH IDENT INFLUENZA VIRUS W OTH RESP MANIFEST Status: Acute (16) Vitamin D deficiency Code(s): E55.9 - VITAMIN D DEFICIENCY, UNSPECIFIED Status: Acute - Plan cont current plan of care, plan discussed w/ family, continue antibiotics, social worker * pt has finished treatment for influenza and pneumonia while in hospital * medication reviewed as below * symptomatic treatment * await outpt HD arrangement * stable * continue HD in hospital as per nephrology. Review of Systems - Review of Systems Eyes: negative: Pain, Vision Change, Conjunctivae Inflammation, Eyelid Inflammation, Redness, Other ENT: negative: Ear Pain, Ear Discharge, Nose Pain, Nose Discharge, Nose Congestion, Mouth Pain, Mouth Swelling, Throat Pain, Throat Swelling, Other Respiratory: negative: Cough, Dry, Shortness of Breath, Hemoptysis, SOB with Excertion, Pleuritic Pain, Sputum, Wheezing Cardiovascular: negative: chest pain, palpitations, orthopnea, paroxysmal nocturnal dyspnea, edema, light headedness, other Gastrointestinal: negative: Nausea, Vomiting, Abdominal Pain, Diarrhea, Constipation, Melena, Hematochezia, Other Genitourinary: negative: Dysuria, Frequency, Incontinence, Hematuria, Retention , Other Musculoskeletal: negative: Neck Pain, Shoulder Pain, Arm Pain, Back Pain, Hand Pain, Leg Pain, Foot Pain, Other Skin: negative: Rash, Lesions, Eder, Bruising, Other - Medications/Allergies Allergies/Adverse Reactions: Allergies Allergy/AdvReac Type Severity Reaction Status Date / Time No Known Drug Allergies Allergy Verified 06/06/17 22:31 Medications: Current Medications Acetaminophen (Tylenol) 650 mg PO Q4H PRN PRN Reason: Headache/Fever or Pain Last Admin: 06/09/17 01:45 Dose: 650 mg Acetaminophen (Tylenol) 1,000 mg PO Q6H PRN PRN Reason: Moderate to Severe Pain (6-10) Hydrocodone Bitart/Acetaminophen ([place] 5/325) 1 tab PO Q4H PRN PRN Reason: Moderate Pain (4-6) Last Admin: 06/09/17 01:46 Dose: 1 tab Al Hydroxide/Mg Hydroxide (Maalox) 30 ml PO Q6H PRN PRN Reason: Heartburn or Indigestion Amlodipine Besylate (Norvasc) 10 mg PO DAILY [facility] Last Admin: 06/13/17 07:52 Dose: Not Given Artificial Tears (Tears Naturale) 0 drop EA EYE PRN PRN PRN Reason: Dry Eyes Aspirin (Aspirin Chewable) 81 mg PO DAILY [facility] Last Admin: 06/13/17 09:22 Dose: Not Given Atorvastatin Calcium (Lipitor) 10 mg PO HS [facility] Last Admin: 06/12/17 20:28 Dose: 10 mg Calcitriol (Rocaltrol) 0.25 mcg PO DAILY [facility] Last Admin: 06/13/17 09:22 Dose: Not Given Calcium Acetate (Phoslo) 1,334 mg PO TID-[facility] Last Admin: 06/13/17 07:51 Dose: Not Given Carvedilol (Coreg) 12.5 mg PO BID-[facility] Last Admin: 06/13/17 07:44 Dose: 12.5 mg Cefazolin Sodium (Ancef) 2 gm SLOW IVP [facility] Cefazolin Sodium (Ancef) 2 gm SLOW IVP [facility] Cholecalciferol (Vitamin D3) 2,000 units PO BID [facility] Last Admin: 06/13/17 09:22 Dose: Not Given Clonidine (Catapres) 0.1 mg PO Q4H PRN PRN Reason: Systolic BP > 180 Last Admin: 06/10/17 04:35 Dose: 0.1 mg Dextrose/Water (Dextrose 50%) 25 gm IVP PRN PRN PRN Reason: HYPOGLYCEMIA PROTOCOL Epoetin Oz (Procrit) 10,000 units IVP MWF [facility] Last Admin: 06/13/17 09:22 Dose: Not Given Famotidine (Pepcid) 20 mg PO DAILY [facility] Last Admin: 06/13/17 09:23 Dose: Not Given Ferrous Sulfate (Feosol) 325 mg PO QAM-[facility] Last Admin: 06/13/17 07:52 Dose: Not Given Gabapentin (Neurontin) 100 mg PO DAILY [facility] Last Admin: 06/13/17 09:23 Dose: Not Given Glucagon (Glucagon) 1 mg IM PRN PRN PRN Reason: HYPOGLYCEMIA PROTOCOL Guaifenesin (Robitussin Sf) 200 mg PO Q4H PRN PRN Reason: Cough Last Admin: 06/07/17 17:22 Dose: 200 mg Heparin Sodium (Porcine) (Heparin) 5,000 units SC BID [facility] Last Admin: 06/13/17 09:23 Dose: Not Given Hydralazine HCl (Apresoline) 10 mg SLOW IVP Q4H PRN PRN Reason: Systolic BP > 180 Ceftriaxone Sodium 1 gm/ (Syringe 0.4 ml/ Sterile Water) 10 mls @ 120 mls/hr SLOW IVP Q24HR [facility] Last Admin: 06/13/17 07:51 Dose: Not Given Dextrose/Water (D5w) 1,000 mls @ 0 mls/hr IV INF PRN; As Directed PRN Reason: HYPOGLYCEMIA PROTOCOL Levofloxacin 500 mg/ Device 100 mls @ 100 mls/hr IVPB Q2DAYS [facility] Last Admin: 06/12/17 10:45 Dose: 100 mls Insulin Human Lispro (Humalog) 0 units SC .MODERATE SLIDING SC PRN; Protocol PRN Reason: MODERATE SLIDING SCALE Last Admin: 06/12/17 10:49 Dose: 6 unit Loperamide HCl (Imodium) 2 mg PO PRN PRN PRN Reason: Diarrhea/Loose Stools Last Admin: 06/07/17 10:36 Dose: 2 mg Loratadine (Claritin) 10 mg PO DAILYPRN PRN PRN Reason: Sinus Symptoms Magnesium Hydroxide (Milk Of Magnesium) 30 ml PO DAILYPRN PRN PRN Reason: Constipation Last Admin: 06/08/17 09:22 Dose: 30 ml Mineral Oil/White Petrolatum (Eucerin Cream) 0 gm TOP BIDPRN PRN PRN Reason: Dry Skin Nitroglycerin (Nitrostat) 0.4 mg SL Q5MIN PRN PRN Reason: Chest Pain Ondansetron HCl (Zofran Odt) 4 mg PO Q6H PRN PRN Reason: Nausea/Vomiting Last Admin: 06/07/17 19:41 Dose: 4 mg Ondansetron HCl (Zofran) 4 mg IVP Q6H PRN PRN Reason: Nausea/Vomiting Last Admin: 06/11/17 08:02 Dose: 4 mg Pantoprazole Sodium (Protonix) 40 mg PO DAILY [facility] Last Admin: 06/13/17 09:23 Dose: Not Given Paricalcitol (Zemplar) 2 mcg IVP [facility] [place] [place] Last Admin: 06/13/17 09:23 Dose: Not Given Phenol (Chloraseptic [place] 180 Ml Bot) 0 ml PO PRN PRN PRN Reason: Sore Throat Senna (Senokot) 2 tab PO HSPRN PRN PRN Reason: Constipation Sodium Chloride ([place] Nasal [place] 0.65%) 0 ml EA NARE QIDPRN PRN PRN Reason: Nasal Congestion Sodium Chloride (Flush - Normal Saline) 10 ml IVF Q12HR [facility] Last Admin: 06/12/17 21:00 Dose: Not Given Sodium Chloride (Flush - Normal Saline) 10 ml IVF PRN PRN PRN Reason: Saline Flush Tramadol HCl (Ultram) 50 mg PO Q6H PRN PRN Reason: Pain Tramadol HCl (Ultram) 100 mg PO Q6H PRN PRN Reason: Pain Zolpidem Tartrate (Ambien) 5 mg PO HSPRN PRN PRN Reason: Insomnia
[2017-06-13 12:44] LABS: Anion Gap 14 mmol/L (10-20); BUN (Urea Nitrogen) 18 mg/dL (9.8-20.1); Calc. Creatinine Clearance 25 mL/min (70-130); Calcium 8.7 mg/dL (7.8-10.44); Carbon Dioxide 28 mmol/L (22-29); Chloride 101 mmol/L (98-107); Estimated GFR-MDRD 16; Glucose 173 mg/dL (70-105); Potassium 4.1 mmol/L (3.5-5.1); Sodium 139 mmol/L (136-145)
[2017-06-13] MEDS ORDERED: Fentanyl 100 MCG/2 ML VIAL ONE (13:27)
[2017-06-13] MEDS ORDERED: Bupivacaine HCl 0.5%/Epinephrine 1:200,000/PF 30 ml Vial ONE (13:33)
[2017-06-13] MEDS ORDERED: Heparin 5,000 UNITS/ML VIAL ONE (13:33)
[2017-06-13] MEDS ORDERED: Protamine Sulfate 50 MG/5 ML VIAL ONE (13:33)
[2017-06-13] MEDS ORDERED: Morphine Sulfate 2 MG/ML SYRINGE SLOW IVP PRN (15:09)
[2017-06-13] MEDS ORDERED: Meperidine HCl/PF 25 MG/ML VIAL SLOW IVP PRN (15:09)
[2017-06-13] MEDS ORDERED: Promethazine HCl 25 MG/ML VIAL IM PRN (15:09)
[2017-06-13] MEDS ORDERED: Ondansetron HCl/PF 4 MG/2 ML Vial IVP PRN (15:09)
[2017-06-13] MEDS ORDERED: Promethazine HCl 25 MG/ML VIAL SLOW IVP PRN (15:09)
--- NOTE | 2017-06-13 16:33 | OP ---
DATE OF PROCEDURE: 06/13/2017 PREOPERATIVE DIAGNOSIS: End-stage renal disease. POSTOPERATIVE DIAGNOSIS: End-stage renal disease. PROCEDURES: Left arm primary fistula, perforating branch antecubital vein to the proximal radial art nydia, outflow cephalic vein only. Retrograde antecubital vein preserved. No communication of the bas ilic vein noted. ANESTHESIA: General LMA. Local 0.5% Marcaine, 30 mL, mixed with 1% Xylocaine with epinephrine, 30 m L. ESTIMATED BLOOD LOSS: 23 mL. DESCRIPTION OF PROCEDURE: The patient taken to the operating room where under general LMA anesthesia , left upper extremity was prepped with ChloraPrep, draped in routine fashion. Local anesthetic infi ltrated into the skin and subcutaneous tissue about the operative site. Incision made in the proxima l volar forearm just below the antecubital fossa carrying skin and subcutaneous tissue. Antecubital vein dissected free and upper cephalic vein was of excellent caliber, very large. There was no commu nication of basilic vein. Perforating branch dissected free and branches divided between 4-0 silk ti es and clips and it was spatulated over a branch point and the patient was given 6000 units of hepari n intravenously. Vein spatulated over a branch point and interrogated with coronary dilators, passin g coronary dilators from a 2 mm to a 4 mm coronary dilator without restriction in the cephalic vein o utflow. Proximal radial artery was dissected free, clamped proximally and distally. Longitudinal ar teriotomy made sharply and elongated with the William scissors for a 2 cm anastomosis created between t he side proximal radial artery and perforating branch of the antecubital vein. Continuous suture of 6-0 Prolene used for the anastomosis, completing the anastomosis, releasing vascular clamps and good hemostasis noted. Surgicel applied. Outflow Doppler interrogation revealed good outflow signals. T he patient is given 25 mg of protamine intravenously. Subcutaneous tissues approximated with 3-0 Mon ocryl, skin with subdermal 4-0 Monocryl and DermaGlue applied. Surgicel had been placed around the a nastomosis.
[2017-06-13] MEDS ORDERED: Heparin 10,000 UNITS/ 10 ML VIAL ONE (16:43)
[2017-06-13] MEDS ORDERED: Ondansetron HCl/PF 4 MG/2 ML Vial ONE (16:43)
[2017-06-13] MEDS ORDERED: Propofol 200 MG/20 ML VIAL ONE (16:43)
[2017-06-13] MEDS ORDERED: Lidocaine 1% PF 5 ML VIAL ONE (16:43)
[2017-06-13] MEDS ORDERED: PHENYLEPHRINE-NS 100 MCG/ML 10 ML SYRINGE ONE (16:43)
[2017-06-13] MEDS: Ondansetron HCl/PF 4 MG/2 ML Vial IVP PRN (18:32)
[2017-06-13] MEDS: Atorvastatin Calcium 10 MG TAB PO SCH (20:46)
[2017-06-14] MEDS: Ondansetron HCl/PF 4 MG/2 ML Vial IVP PRN (08:12)
[2017-06-14] MEDS: Carvedilol 6.25 MG TAB PO SCH (08:22)
[2017-06-14 08:42] VITALS: TEMP 98.1
[2017-06-14] MEDS ORDERED: Polyethylene Glycol 3350 17 GM Packet PO SCH (09:00)
[2017-06-14] MEDS: Calcium Acetate 667 MG CAP PO SCH ×2 (09:50→13:19)
[2017-06-14] MEDS: Calcitriol 0.25 MCG CAP PO SCH (09:50)
[2017-06-14] MEDS: Ferrous Sulfate 325 MG TAB PO SCH (09:51)
[2017-06-14] MEDS: Famotidine 20 MG TAB PO SCH (09:51)
[2017-06-14] MEDS: Amlodipine 10 MG TAB PO SCH (09:51)
[2017-06-14] MEDS: Heparin 5,000 UNITS/ML VIAL SC SCH (09:51)
[2017-06-14] MEDS: Gabapentin 100 MG CAP PO SCH (09:51)
--- NOTE | 2017-06-14 09:53 | PDOC.PN ---
- Subjective Encounter Start Date: 06/14/17 Encounter Start Time: 08:40 Patient seen and examined. No new complaints. No overnight events - Objective Resuscitation Status: Resuscitation Status FULL:Full Resuscitation MAR Reviewed: Yes Vital Signs & Weight: Vital Signs (12 hours) Temp Pulse Resp BP BP BP Pulse Ox 06/14/17 08:22 134/60 06/14/17 08:00 98.1 F 76 16 134/60 93 L 06/14/17 04:00 98.2 F 78 18 134/60 92 L 06/14/17 02:33 98.7 F 79 18 153/68 H 91 L Weight Weight 175 lb 0.752 oz I&O: 06/13/17 06/14/17 06/15/17 06:59 06:59 06:59 Intake Total 1400 220 Output Total 2100 Balance 1400 -1880 Result Diagrams: 06/08/17 04:16 06/13/17 10:10 Additional Labs: Accuchecks 06/14/17 06/13/17 06/13/17 06:53 20:59 16:03 POC Glucose 145 H 190 H 144 H Phys Exam - Physical Examination Constitutional: NAD HEENT: PERRLA, moist MMs, sclera anicteric Neck: no JVD, supple Respiratory: no wheezing, no rales, no rhonchi, clear to auscultation bilateral Cardiovascular: RRR, no significant murmur, no rub Gastrointestinal: soft, non-tender, no distention, positive bowel sounds Musculoskeletal: no edema, pulses present Neurological: non-focal, normal sensation, moves all 4 limbs Psychiatric: normal affect, A&O x 3 Skin: no rash, normal turgor Dx/Plan (1) Acute metabolic encephalopathy due to hypoglycemia Code(s): G93.41 - METABOLIC ENCEPHALOPATHY; E16.2 - HYPOGLYCEMIA, UNSPECIFIED Status: Resolved (2) Acute worsening of stage 3 chronic kidney disease Code(s): N18.3 - CHRONIC KIDNEY DISEASE, STAGE 3 (MODERATE) Status: Acute Comment: now ESRD, started on HD (3) Hypoglycemia associated with type 2 diabetes mellitus Code(s): E11.649 - TYPE 2 DIABETES MELLITUS WITH HYPOGLYCEMIA WITHOUT COMA Status: Resolved (4) Metabolic acidosis Code(s): E87.2 - ACIDOSIS Status: Resolved (5) Sepsis Code(s): A41.9 - SEPSIS, UNSPECIFIED ORGANISM Status: Resolved (6) UTI (urinary tract infection) Status: Acute (7) Anemia of renal disease Code(s): D63.1 - ANEMIA IN CHRONIC KIDNEY DISEASE Status: Chronic (8) DM type 2 (diabetes mellitus, type 2) Status: Chronic (9) Diabetic neuropathy Code(s): E11.40 - TYPE 2 DIABETES MELLITUS WITH DIABETIC NEUROPATHY, UNSP Status: Chronic (10) Dyslipidemia Code(s): E78.5 - HYPERLIPIDEMIA, UNSPECIFIED Status: Chronic (11) GERD (gastroesophageal reflux disease) Code(s): K21.9 - GASTRO-ESOPHAGEAL REFLUX DISEASE WITHOUT ESOPHAGITIS Status: Chronic (12) HTN (hypertension) Code(s): I10 - ESSENTIAL (PRIMARY) HYPERTENSION Status: Chronic (13) Secondary hyperparathyroidism of renal origin Code(s): N25.81 - SECONDARY HYPERPARATHYROIDISM OF RENAL ORIGIN Status: Chronic (14) Community acquired pneumonia Code(s): J18.9 - PNEUMONIA, UNSPECIFIED ORGANISM Status: Acute (15) Influenza B Code(s): J10.1 - FLU DUE TO OTH IDENT INFLUENZA VIRUS W OTH RESP MANIFEST Status: Acute (16) Vitamin D deficiency Code(s): E55.9 - VITAMIN D DEFICIENCY, UNSPECIFIED Status: Acute - Plan cont current plan of care, plan discussed w/ family, continue antibiotics, 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 Review of Systems - Review of Systems Constitutional: negative: fever, chills, sweats, weakness, malaise, other Eyes: negative: Pain, Vision Change, Conjunctivae Inflammation, Eyelid Inflammation, Redness, Other ENT: Throat Pain. negative: Ear Pain, Ear Discharge, Nose Pain, Nose Discharge , Nose Congestion, Mouth Pain, Mouth Swelling, Throat Swelling, Other Respiratory: negative: Cough, Dry, Shortness of Breath, Hemoptysis, SOB with Excertion, Pleuritic Pain, Sputum, Wheezing Cardiovascular: negative: chest pain, palpitations, orthopnea, paroxysmal nocturnal dyspnea, edema, light headedness, other Gastrointestinal: Nausea Genitourinary: negative: Dysuria, Frequency, Incontinence, Hematuria, Retention , Other Musculoskeletal: negative: Neck Pain, Shoulder Pain, Arm Pain, Back Pain, Hand Pain, Leg Pain, Foot Pain, Other Skin: negative: Rash, Lesions, Eder, Bruising, Other - Medications/Allergies Allergies/Adverse Reactions: Allergies Allergy/AdvReac Type Severity Reaction Status Date / Time No Known Drug Allergies Allergy Verified 06/06/17 22:31 Medications: Current Medications Acetaminophen (Tylenol) 650 mg PO Q4H PRN PRN Reason: Headache/Fever or Pain Last Admin: 06/09/17 01:45 Dose: 650 mg Acetaminophen (Tylenol) 1,000 mg PO Q6H PRN PRN Reason: Moderate to Severe Pain (6-10) Hydrocodone Bitart/Acetaminophen ([place] 5/325) 1 tab PO Q4H PRN PRN Reason: Moderate Pain (4-6) Last Admin: 06/09/17 01:46 Dose: 1 tab Al Hydroxide/Mg Hydroxide (Maalox) 30 ml PO Q6H PRN PRN Reason: Heartburn or Indigestion Amlodipine Besylate (Norvasc) 10 mg PO DAILY [facility] Last Admin: 06/13/17 07:52 Dose: Not Given Artificial Tears (Tears Naturale) 0 drop EA EYE PRN PRN PRN Reason: Dry Eyes Aspirin (Aspirin Chewable) 81 mg PO DAILY [facility] Last Admin: 06/13/17 09:22 Dose: Not Given Atorvastatin Calcium (Lipitor) 10 mg PO [facility] Last Admin: 06/13/17 20:46 Dose: 10 mg Calcitriol (Rocaltrol) 0.25 mcg PO DAILY [facility] Last Admin: 06/13/17 09:22 Dose: Not Given Calcium Acetate (Phoslo) 1,334 mg PO TID-[facility] Last Admin: 06/13/17 18:07 Dose: 1,334 mg Carvedilol (Coreg) 12.5 mg PO BID-[facility] Last Admin: 06/14/17 08:22 Dose: 12.5 mg Cefazolin Sodium (Ancef) 2 gm SLOW IVP [facility] Cefazolin Sodium (Ancef) 2 gm SLOW IVP [facility] Cholecalciferol (Vitamin D3) 2,000 units PO BID [facility] Last Admin: 06/13/17 20:46 Dose: 2,000 units Clonidine (Catapres) 0.1 mg PO Q4H PRN PRN Reason: Systolic BP > 180 Last Admin: 06/10/17 04:35 Dose: 0.1 mg Dextrose/Water (Dextrose 50%) 25 gm IVP PRN PRN PRN Reason: HYPOGLYCEMIA PROTOCOL Epoetin Oz (Procrit) 10,000 units IVP MWF [facility] Last Admin: 06/13/17 20:48 Dose: 10,000 units Famotidine (Pepcid) 20 mg PO DAILY [facility] Last Admin: 06/13/17 09:23 Dose: Not Given Ferrous Sulfate (Feosol) 325 mg PO QAM-WM [facility] Last Admin: 06/13/17 07:52 Dose: Not Given Gabapentin (Neurontin) 100 mg PO DAILY [facility] Last Admin: 06/13/17 09:23 Dose: Not Given Glucagon (Glucagon) 1 mg IM PRN PRN PRN Reason: HYPOGLYCEMIA PROTOCOL Guaifenesin (Robitussin Sf) 200 mg PO Q4H PRN PRN Reason: Cough Last Admin: 06/07/17 17:22 Dose: 200 mg Heparin Sodium (Porcine) (Heparin) 5,000 units SC BID [facility] Last Admin: 06/13/17 20:48 Dose: 5,000 units Hydralazine HCl (Apresoline) 10 mg SLOW IVP Q4H PRN PRN Reason: Systolic BP > 180 Dextrose/Water (D5w) 1,000 mls @ 0 mls/hr IV INF PRN; As Directed PRN Reason: HYPOGLYCEMIA PROTOCOL Levofloxacin 500 mg/ Device 100 mls @ 100 mls/hr IVPB Q2DAYS [facility] Last Admin: 06/12/17 10:45 Dose: 100 mls Ceftriaxone Sodium 1 gm/ (Syringe 0.4 ml/ Sterile Water) 10 mls @ 120 mls/hr SLOW IVP Q24HR [facility] Last Admin: 06/13/17 15:46 Dose: Not Given Insulin Human Lispro (Humalog) 0 units SC .MODERATE SLIDING SC PRN; Protocol PRN Reason: MODERATE SLIDING SCALE Last Admin: 06/12/17 10:49 Dose: 6 unit Loperamide HCl (Imodium) 2 mg PO PRN PRN PRN Reason: Diarrhea/Loose Stools Last Admin: 06/07/17 10:36 Dose: 2 mg Loratadine (Claritin) 10 mg PO DAILYPRN PRN PRN Reason: Sinus Symptoms Magnesium Hydroxide (Milk Of Magnesium) 30 ml PO DAILYPRN PRN PRN Reason: Constipation Last Admin: 06/08/17 09:22 Dose: 30 ml Mineral Oil/White Petrolatum (Eucerin Cream) 0 gm TOP BIDPRN PRN PRN Reason: Dry Skin Nitroglycerin (Nitrostat) 0.4 mg SL Q5MIN PRN PRN Reason: Chest Pain Ondansetron HCl (Zofran Odt) 4 mg PO Q6H PRN PRN Reason: Nausea/Vomiting Last Admin: 06/07/17 19:41 Dose: 4 mg Ondansetron HCl (Zofran) 4 mg IVP Q6H PRN PRN Reason: Nausea/Vomiting Last Admin: 06/14/17 08:12 Dose: 4 mg Pantoprazole Sodium (Protonix) 40 mg PO DAILY [facility] Last Admin: 06/13/17 09:23 Dose: Not Given Paricalcitol (Zemplar) 2 mcg IVP [facility] Last Admin: 06/13/17 20:48 Dose: 2 mcg Phenol (Chloraseptic [place] 180 Ml Bot) 0 ml PO PRN PRN PRN Reason: Sore Throat Polyethylene Glycol (Miralax) 17 gm PO DAILY [facility] Senna (Senokot) 2 tab PO HSPRN PRN PRN Reason: Constipation Sodium Chloride ([place] 0.65%) 0 ml EA NARE QIDPRN PRN PRN Reason: Nasal Congestion Sodium Chloride (Flush - Normal Saline) 10 ml IVF Q12HR [facility] Last Admin: 06/13/17 20:49 Dose: 10 ml Sodium Chloride (Flush - Normal Saline) 10 ml IVF PRN PRN PRN Reason: Saline Flush Tramadol HCl (Ultram) 50 mg PO Q6H PRN PRN Reason: Pain Last Admin: 06/13/17 20:46 Dose: 50 mg Tramadol HCl (Ultram) 100 mg PO Q6H PRN PRN Reason: Pain Zolpidem Tartrate (Ambien) 5 mg PO HSPRN PRN PRN Reason: Insomnia
--- NOTE | 2017-06-14 10:58 | DIS ---
PRIMARY CARE PHYSICIAN: Dr. Cheyenne Blackwell DATE OF ADMISSION: 06/06/2017 DATE OF DISCHARGE: 06/14/2017 DISCHARGE DISPOSITION: Home with outpatient hemodialysis. PRIMARY DISCHARGE DIAGNOSES: 1. Acute on chronic kidney failure, baseline chronic kidney disease stage 3. 2. Community-acquired pneumonia, treated in hospital. 3. Influenza, being treated in the hospital. 4. Urinary tract infection treated in hospital. 5. Vitamin D deficiency. 6. Metabolic acidosis, resolved. 7. Sepsis, resolved. 8. Hypoglycemia associated with diabetes type 2, resolved. 9. Acute metabolic encephalopathy due to hypoglycemia, resolved. 10. Secondary hyperparathyroidism of renal origin. SECONDARY DISCHARGE DIAGNOSES: Chronic kidney disease stage 3, anemia of renal disease, diabetic bhumi ropathy, diabetic nephropathy, diabetes type 2, dyslipidemia, gastroesophageal reflux disease, hypert ension, obesity with body mass index 33. PRIMARY PROCEDURES/OPERATIONS: The patient had central line placement. The patient had a tunneled h emodialysis catheter placement by Dr. Leach. Left arm primary fistula. RADIOLOGICAL INVESTIGATION: Chest x-ray on admission showed no acute cardiopulmonary process. CT of the abdomen and pelvis stone protocol showed patchy bibasilar infiltration with a left pleural effus ion, small hiatal hernia, ventral hernia, diverticulosis, no renal calculi. Repeat chest x-ray after dialysis catheter placement was unremarkable. SIGNIFICANT LABS: WBC 4.1, hemoglobin 9.8, platelet 127. Sodium 139, potassium 4.1, BUN 18, creatin ine 3.04, calcium 8.7. Urinalysis suggestive of UTI. Hepatitis profile negative. Blood culture neg ative. Urine culture negative. Influenza B was positive. DISCHARGE MEDICATIONS: Amlodipine 10 mg p.o. daily, aspirin 81 mg p.o. daily, Lipitor 10 mg p.o. at bedtime, calcitriol 0.25 mg p.o. daily, PhosLo 1334 mg t.i.d., Coreg 12.5 mg p.o. b.i.d., vitamin D3 2000 unit p.o. b.i.d., Pepcid 20 mg p.o. daily, ferrous sulfate 325 mg p.o. daily, gabapentin 100 mg p.o. at bedtime, Zofran ODT 4 mg q.6h. p.r.n., Protonix 40 mg p.o. daily. CONTRAINDICATIONS: None. CODE STATUS: FULL CODE. INPATIENT CONSULTANTS: Dr. Wellington was following for acute on chronic kidney failure. Dr. Leach wa s consulted for dialysis access. TEST RESULTS PENDING ON DISCHARGE: None. ALLERGIES: No known drug allergy. DISCHARGE PLAN: Post hospital, the patient will follow up with Dr. Leach in 3-4 weeks. The patient will make appointment with primary care physician in 1 week. The patient will follow up with Dr. Daphne mcgowan as instructed. HOSPITAL COURSE: The patient is a 57-year-old female who was admitted by me on 06/06/2017. On the day of admission the patient was found with acute on chronic kidney failure. She had metabo lic encephalopathy. She had hypoglycemia. She required D50 ampule in the emergency room, and we con tinued with the D5 with half normal saline and sodium bicarbonate on it. We discontinued oral diabet ic medication. While in hospital she was not requiring any medications. Her diabetes is now diet co ntrolled. Her initial acute metabolic encephalopathy was attributed to be due to hypoglycemia that w as resolved. Her hypoglycemia was related with oral sulfonylurea medication that was also resolved a fter stopping those medications. Her acute on chronic kidney failure associated with metabolic acido sis and anemia of renal disease and secondary hyperparathyroidism of renal origin. She did not have any significant improvement in her renal function that has required dialysis and that is why Dr. Jameson was also following and they made decision to start dialysis. At that point, Dr. Leach was consulte d who put dialysis access and subsequently AV fistula was also done. The patient also had central li ne placed by Dr. Leach. While in hospital, she was having high grade fever. Initially we suspected UTI and that is why we di d a CT stone protocol that also confirmed bibasilar pneumonia. She was also having cough and weaknes s, and that is why we did influenza screen and there was positive for influenza B. influenza B was tr eated with Tamiflu, which she finished complete course of therapy while in hospital. Her pneumonia a nd was treated with Rocephin and Levaquin. She also finished that treatment while in hospital. The patient was found with vitamin D deficiency that is why we started vitamin D and calcitriol. For her secondary hyperparathyroidism of renal origin we started PhosLo. Her blood pressure medication was adjusted as above. Dietary education is given. At this point, the patient is strongly advised to be strictly adherent w ith a diabetic diet, but at this point, we are not going to continue sulfonylurea to prevent hypoglyc emia. The patient is also advised to monitor her blood sugar at home more frequently and see primary care physician. The patient is seen and examined at bedside today. Please see my progress note from today for furthe r detail. Overall, the patient is medically stable for discharge today with the above-mentioned medi cation. All new medication prescriptions sent to her pharmacy.
--- NOTE | 2017-06-14 11:12 | PRG ---
DATE OF SERVICE: 06/14/2017 SUBJECTIVE: A 57-year-old female being seen for end-stage renal disease. Denies any nausea, vomitin g or chest pain. OBJECTIVE: GENERAL: The patient is awake and alert. VITAL SIGNS: Afebrile, pulse 75, breathing at 16 and blood pressure 130/60. HEAD/NECK: Normocephalic. Atraumatic. EYES: EOMI. No deformity. EARS: Clear. No ulcers. NOSE: Intact. No lesions. MOUTH: Clear. No discharge. THROAT: Clear. No exudate. LUNGS: Clear. No crackles. CARDIAC: S1, S2. No rub. ABDOMEN: Benign. BS+. GENITALIA/RECTUM: Steen absent. BACK/EXTREMITIES: Edema 0+. Ulcer-. NEUROLOGICAL: Alert and motor intact. SKIN: Rash-. Bruise-. LYMPHATICS: Edema-. Ulcer-. ASSESSMENT AND RECOMMENDATIONS: 1. Stage 6 chronic kidney disease. We will plan dialysis Sunday, Sunday, and Sunday. 2. Hypertension, stable. 3. Anemia, stable.
[2017-06-14 12:02] VITALS: BP 146/68
[2017-06-14] MEDS: cefTRIAXone\\ROCEPHIN 1 GM, Syringe 0.4 ML in Sterile Water 9.6 ML SLOW IVP SCH (13:22)
[2017-06-14] MEDS: HumaLOG 300 UNITS/3 ML VIAL SC PRN (13:34)
== END 2017-06-14 13:57 | disposition home or self-care (01) | DRG 853 ==
LOC: ERS 12:24 → T4-B 16:05
PROVIDERS: ADMIT Internal Medicine; ATTEND Internal Medicine
PROC: 02H633Z Insertion of Infusion Device into Right Atrium, Percutaneous Approach (ICD-10-PCS; 2017-06-08)
PROC: B2141ZZ Fluoroscopy of Right Heart using Low Osmolar Contrast (ICD-10-PCS; 2017-06-08)
PROC: 5A1D70Z Performance of Urinary Filtration, Intermittent, Less than 6 Hours Per Day (ICD-10-PCS; 2017-06-09)
PROC: 5A1D70Z Performance of Urinary Filtration, Intermittent, Less than 6 Hours Per Day (ICD-10-PCS; 2017-06-11)
PROC: 031C0ZF Bypass Left Radial Artery to Lower Arm Vein, Open Approach (ICD-10-PCS; principal; 2017-06-13)
PROC: 5A1D70Z Performance of Urinary Filtration, Intermittent, Less than 6 Hours Per Day (ICD-10-PCS; 2017-06-13)
DX: A41.9 Sepsis, unspecified organism (principal); N18.6 End stage renal disease; G93.41 Metabolic encephalopathy; J10.00 Influenza due to other identified influenza virus with unspecified type of pneumonia; E11.22 Type 2 diabetes mellitus with diabetic chronic kidney disease; E11.40 Type 2 diabetes mellitus with diabetic neuropathy, unspecified; N17.9 Acute kidney failure, unspecified; I12.0 Hypertensive chronic kidney disease with stage 5 chronic kidney disease or end stage renal disease; M62.82 Rhabdomyolysis; E66.01 Morbid (severe) obesity due to excess calories; N25.81 Secondary hyperparathyroidism of renal origin; N39.0 Urinary tract infection, site not specified; E11.649 Type 2 diabetes mellitus with hypoglycemia without coma; Z85.41 Personal history of malignant neoplasm of cervix uteri; Z92.3 Personal history of irradiation; Z79.84 Long term (current) use of oral hypoglycemic drugs; Z79.82 Long term (current) use of aspirin; E78.5 Hyperlipidemia, unspecified; K21.9 Gastro-esophageal reflux disease without esophagitis; D63.1 Anemia in chronic kidney disease; Z68.33 Body mass index [BMI] 33.0-33.9, adult; E55.9 Vitamin D deficiency, unspecified; T38.3X5A Adverse effect of insulin and oral hypoglycemic [antidiabetic] drugs, initial encounter; E88.09 Other disorders of plasma-protein metabolism, not elsewhere classified; E83.51 Hypocalcemia; D50.9 Iron deficiency anemia, unspecified
CPT/HCPCS: 36415; 36416; 71045; 74176; 80048; 80053; 81001; 82306; 82553; 82570; 82728; 83540; 83550; 83605; 83970; 84100; 84156; 84300; 84484; 85025; 86580; 86704; 86706; 86803; 87040; 87086; 87340; 90935; 93005; 93970; 96374; A4216; C1752; C1769; G0257; G0365; G8978-GP-CK; G8979-GP-CH; J0670; J0696; J0885; J1644; J1956; J2001; J2250; J2270; J2405; J2501; J2704; J2720; J3010; J3490; J7042; Q0162

== ENCOUNTER 2017-08-14 06:54 | Day surgery (SDC) | payer MEDICARE, OTHER ==
[2017-08-13 10:11] VITALS: BMI 33.3
[2017-08-14 08:14] VITALS: TEMP 97
[2017-08-14 08:15] VITALS: BP 147/65
--- NOTE | 2017-08-14 11:11 | SPC ---
LEFT UPPER EXTREMITY ARTERIAL VENOUS DIALYSIS FISTULOGRAM AND VENOGRAM THROUGH THE SVC: Date: 08-14-17 History: Non-maturing left upper extremity arterial venous dialysis fistula. Fluoroscopy: Total fluoroscopy time was 1.2 minutes with total dose of 10,0011 mGy*cm^2. Technique: The procedure including risks and complications were explained to the patient and informed consent wa s obtained. The patient was placed on the angiography table in supine position. The left upper extrem ity was meticulously prepped and draped in the usual sterile fashion. Utilizing concurrent real-time ultrasound guidance, the fistula was evaluated. An access site was localized and the skin and subcuta neous tissues were infiltrated with buffered 1% Lidocaine for local anesthesia. Utilizing concurrent real-time ultrasound guidance, the cephalic vein outflow was accessed with micropuncture technique, a nd a 5 [place] introducer sheath was placed. A fistulogram and venogram to the Single view of the SVC were performed. Manual compression was applied to the venous outflow with reflux of contrast into wha t was thought to be basilic vein. This vein is also patent to the level of the SVC. Blood pressure cuff was applied to the upper arm and insufflated above the patient's blood pressure a nd contrast was injected demonstrating patency of an arterial venous anastomosis at the level of the antecubital fossa. The introduce sheath was removed. Hemostatis was achieved with direct pressure. Dry sterile dressing was placed to the catheter entry site. Patient tolerated the procedure well and without immediate com plication. IMPRESSION: 1. Patent left upper extremity arterial venous dialysis fistula with patent venous outflow to the SVC . 2. The venous outflow is primarily via the cephalic vein, but there is also flow present within what is thought to be the left basilic vein. This vein is also patent. 3. Patent arterial venous anastomosis. POS: [facility]
== END 2017-08-14 09:10 | disposition home or self-care (01) ==
LOC: SPEC 06:54
PROVIDERS: ATTEND Specialist
PROC: B51WZZA Fluoroscopy of Dialysis Shunt/Fistula, Guidance (ICD-10-PCS; principal; 2017-08-14)
DX: T82.598A Other mechanical complication of other cardiac and vascular devices and implants, initial encounter (principal); N18.6 End stage renal disease; Z79.82 Long term (current) use of aspirin; Z79.899 Other long term (current) drug therapy
CPT/HCPCS: 36901

== ENCOUNTER 2018-01-24 08:20 | Outpatient (CLI) | payer MEDICAID ==
--- NOTE | 2018-01-24 09:52 | BD ---
DEXA BONE DENSITY STUDY: Date: 01/24/18 COMPARISON: None. HISTORY: 57-year-old postmenopausal female for screening for osteoporosis. FINDINGS: Lumbar Spine: BMD (g/cm2) L1 0.775 T-Score: -2.0 L2 0.785 T-Score: -2.2 L3 0.767 T-Score: -2.9 L4 0.704 T-Score: -3.2 L1-L4 0.757 T-Score: -2.6 Femoral Neck: 0.759 T-Score: -0.8 Total Femur: 0.893 T-Score: -0.4 IMPRESSION: Osteoporosis. This patient has a 10 year WHO fracture risk for a major osteoporotic fracture of 3.5% and for a hip fracture of 0.1%. POS: [facility]
== END 2018-01-24 08:21 | disposition home or self-care (01) ==
LOC: BICMAMMO 08:20
PROVIDERS: ATTEND Obstetrics & Gynecology
DX: Z12.31 Encounter for screening mammogram for malignant neoplasm of breast (principal); Z13.820 Encounter for screening for osteoporosis; M81.0 Age-related osteoporosis without current pathological fracture; R92.1 Mammographic calcification found on diagnostic imaging of breast; N64.89 Other specified disorders of breast; Z85.42 Personal history of malignant neoplasm of other parts of uterus
CPT/HCPCS: 77063; 77067; 77080

== ENCOUNTER 2019-09-11 13:33 | Emergency (ER) | payer MEDICAID, MEDICARE ==
--- NOTE | 2019-09-11 15:45 | RAD ---
LEFT ANKLE THREE VIEWS: 09/11/19 HISTORY: Injury, left ankle pain and swelling. FINDINGS/IMPRESSION: Soft tissue swelling is present. The ankle mortise is maintained. There is a questionable nondisplace d fracture involving the inferior aspect of the tip of the medial malleolus. The plantar calcaneal sp ur is present. POS: [facility]
== END 2019-09-11 14:45 | disposition home or self-care (01) ==
LOC: ERS 13:33
DX: S82.65XA Nondisplaced fracture of lateral malleolus of left fibula, initial encounter for closed fracture (principal); E11.9 Type 2 diabetes mellitus without complications; I10 Essential (primary) hypertension; W18.30XA Fall on same level, unspecified, initial encounter

== ENCOUNTER 2019-09-21 16:33 | Emergency (ER) | payer MEDICARE, OTHER ==
[2019-09-21] MEDS ORDERED: Ondansetron PF 4 MG/2 ML Vial ONE (17:48)
[2019-09-21 17:53] LABS: #Lymphocytes 1.1 thou/uL (1.20-3.40); #Monocytes 0.4 thou/uL (0.11-0.59); #Neutrophils 5.5 thou/uL (1.40-6.50); %Basophils 0.5 % (0.0-1.0); %Eosinophils 0.2 % (0.0-10.0); %Lymphocytes 15.9 % (21.0-51.0); %Monocytes 5.9 % (0.0-10.0); %Neutrophils 77.5 % (42.0-75.0); Hemoglobin 12.1 g/dL (12.0-16.0); Mean Corpuscular HGB CONC 34.8 g/dL (32.0-36.0); Mean Corpuscular Hemoglobin 32.8 pg (27.0-31.0); Mean Corpuscular Volume 94.3 fL (78.0-98.0); Mean Platelet Volume 9.7 fL (7.4-10.4); Platelet Count 149 thou/uL (130-400); RBC Distribution Width 12.3 % (11.5-14.5); Red Blood Cell (RBC) Count 3.67 mill/uL (4.20-5.40); White Blood Cell (WBC) Count 7.1 thou/uL (4.8-10.8)
[2019-09-21 18:10] LABS: Bilirubin Negative (Negative); Blood, Urine 1+ (Negative); Clarity Clear (Clear); Glucose, Urine (Dipstick) Normal (Negative); Leukocyte Negative Leu/uL (Negative); Nitrite Negative (Negative); Protein, Urine (Dipstick) 300 mg/dL (Neg-Trace); RBC/HPF 0-3 HPF (0-3); Squamous Epithelial 0-3 HPF (0-3); Urobilinogen Normal mg/dL (Less than 2)
[2019-09-21 18:11] LABS: Bacteria/HPF 1+ HPF (None Seen)
[2019-09-21 18:16] LABS: ALT (SGPT) 11 U/L (8-55); AST (SGOT) 25 U/L (5-34); Alkaline Phosphatase 40 U/L (40-110); Anion Gap 21 mmol/L (10-20); BUN (Urea Nitrogen) 52 mg/dL (9.8-20.1); Bilirubin, Total 0.4 mg/dL (0.2-1.2); Calc. Creatinine Clearance 0 mL/min (70-130); Calcium 8.5 mg/dL (7.8-10.44); Carbon Dioxide 24 mmol/L (22-29); Chloride 98 mmol/L (98-107); Estimated GFR-MDRD 4; Globulin 3.6 g/dL (2.4-3.5); Glucose 92 mg/dL (70-105); Lipase 18 U/L (8-78); Potassium 4.9 mmol/L (3.5-5.1); Protein, Total 7.6 g/dL (6.0-8.3); Sodium 138 mmol/L (136-145)
--- NOTE | 2019-09-21 19:24 | RAD ---
FRONTAL RADIOGRAPH CHEST: Date: 09-21-2019 Comparison: 06-08-17 History: Nausea, vomiting. FINDINGS: There is mild nonspecific increased linear density in the perihilar regions of both lung bases, simil ar when compared to the prior exam. Mild pulmonary vascular congestion noted. No pneumothorax, pleura l fluid, lobar consolidation or alveolar edema. There is atherosclerotic calcification in the aortic arch. IMPRESSION: Pulmonary vascular congestion with mild perihilar interstitial prominence, nonspecific. No focal cons olidation or alveolar edema. POS: [facility]
== END 2019-09-21 19:15 | disposition home or self-care (01) ==
LOC: ERS 16:33
DX: I12.0 Hypertensive chronic kidney disease with stage 5 chronic kidney disease or end stage renal disease (principal); N18.6 End stage renal disease; Z99.2 Dependence on renal dialysis; E11.22 Type 2 diabetes mellitus with diabetic chronic kidney disease; R11.2 Nausea with vomiting, unspecified
CPT/HCPCS: 71045; 80053; 81003; 81015; 83605; 83690; 85025; J2405

== ENCOUNTER 2023-06-05 09:41 | Outpatient (CLI) | payer MEDICARE | END 2023-06-05 09:42 | disposition home or self-care (01) | LOC: RAD 09:41 | PROVIDERS: ATTEND Physician Assistant Medical | DX: K21.9 Gastro-esophageal reflux disease without esophagitis (principal); R13.12 Dysphagia, oropharyngeal phase; R19.7 Diarrhea, unspecified; D64.9 Anemia, unspecified | CPT/HCPCS: 74230 ==